=== PATIENT | male | born 1945 | race African-American/Black ===

== ENCOUNTER → 2020-07-28 09:12 | Outpatient (BNVA) | payer MEDICARE, SELFPAY | PROVIDERS: PCP Internal Medicine; Referring Provider Internal Medicine; Visit Provider Dietitian, Registered ==

== ENCOUNTER 2020-07-29 10:17 | Outpatient (REF) | payer MEDICARE, SELFPAY ==
[2020-07-29 15:10] LABS: Estimated Average Glucose 154 mg/dL
[2020-07-29 15:11] LABS: Alanine Aminotransferase 13 U/L (0-40); Albumin Level 4.6 g/dL (3.5-5.0); Alkaline Phosphatase 39 U/L (39-117); Anion Gap 15 (12-20); Aspartate Amino Transferase 19 U/L (5-37); Bilirubin Total 0.6 mg/dL (0.0-1.0); Blood Urea Nitrogen 14 mg/dL (9-16); Calcium 9.1 mg/dL (8.4-10.2); Carbon Dioxide 27 mmol/L (22-29); Chloride 104 mmol/L (96-108); Cholesterol 133 mg/dL; Estimated Glomerular Filt Rate > 60; Glucose Fasting 82 mg/dL (60-99); HDL Cholesterol 53 mg/dL; LDL Cholesterol Calculated 72 mg/dl; Potassium 4.1 mmol/L (3.3-5.1); Sodium 142 mmol/L (135-145); Triglycerides 44 mg/dL
[2020-07-29 15:28] LABS: Creatinine Urine 178.75 mg/dL; Microalbum/Creatinine Ratio Ur 6.7 ug/mg cr
[2020-07-30 05:43] LABS: LDL Cholesterol Direct 64 mg/dL (<100)
== END 2020-07-29 10:18 | disposition home or self-care (01) ==
LOC: HO.10HDL 10:17
PROVIDERS: Visit Provider Nurse Practitioner Gerontology
DX: E11.42 Type 2 diabetes mellitus with diabetic polyneuropathy (principal)
CPT/HCPCS: 36415; 80053; 80061; 82043; 83036; 83721

== ENCOUNTER → 2020-08-06 09:08 | Outpatient (BNVA) | payer MEDICARE, SELFPAY | PROVIDERS: PCP Internal Medicine; Visit Provider Nurse Practitioner Gerontology | DX: Z13.89 Encounter for screening for other disorder (principal) | CPT/HCPCS: 99212 ==

== ENCOUNTER 2020-10-30 15:26 | Outpatient (REF) | payer MEDICARE, SELFPAY ==
--- NOTE | 2020-10-31 13:43 | MHC.AU.ANO ---
Adult Audiological Evaluation Date of Visit: 10/30/20 Reason for Appointment: Patient reports long-standing history of hearing difficulty. He has had his hearing tested in the past at another clinic and was told he would benefit from hearing aids. It was observed during the appointment that the patient had difficulty hearing when speech was at average conversational volumes. Hearing Handicap Inventory: HHIE SCORE: 16 Based on HHIE score, patient has: Mild to moderate perceived hearing handicap Ear History: Ear Deformity: None Reported Recent Ear Drainage: None Reported Family History of Hearing Loss?: No Recent Ear Infections: None Reported Ear Infections in Childhood: None Reported History of Ear Wax Buildup: None Reported Previous Ear Surgery: None Reported Bothersome Tinnitus/Ringing/Noises in Ears: None Reported History of occupational noise exposure?: Yes History: No Medical History: Medical History: Type 2 Diabetes, Hypertension Otoscopy: Right Ear: Unremarkable Left Ear: Unremarkable Tympanometry: Tympanometry performed due to: To assess integrity of the middle ear system Right Ear: Normal Middle Ear System (Type A) Left Ear: Normal Middle Ear System (Type A) Hearing Evaluation: Transducer(s) Used: Circumaural Headphones Method: Conventional Audiometry Stimuli Used: Pure Tones Right Ear: Description of Hearing: Moderate to severe sensorineural hearing loss Left Ear: Description of Hearing: Moderate to severe sensorineural hearing loss Speech Recognition Threshold (SRT): Method Used: Recorded Lists Stimuli Used: Spondee Words Right Ear: 55 dBHL Left Ear: 50 dBHL Word Discrimination: Method: Recorded Lists Word Lists Used: NU-6 Right Ear: 72% at 80 dBHL Left Ear: 72% at 80 dBHL Most Comfortable Level (MCL): Right Ear: 80 dBHL Left Ear: 80 dBHL Interpretation of Results: Patient presents with moderate to severe sensorineural hearing loss bilaterally with fair word discrimination. This degree of hearing loss significantly impacts day-to-day communication. Amplification is highly recommended. Recommendations: Audiological re-evaluation in one year. Patient is interested in hearing aids, but is unable to pursue them at this time because of the cost. A few suggestions for obtaining hearing aids: -Advised patient to first contact his insurance to determine if there is any hearing aid benefit or discount. -Contact a local [email or web address] to ask about their hearing aid programs. -Consider a healthcare financing program, such as [employer]. -Research prices at various hearing aid providers. Diagnosis: Primary Diagnosis: H90.3 Bilateral Sensorineural Hearing Loss Services Performed: Comprehensive Audiological Evaluation (CPT 08950), Tympanometry (CPT 88063) Signature: Provider: Janet Falrey, CCC-A
== END 2020-10-30 15:27 | disposition home or self-care (01) ==
LOC: HO.SH 15:26
PROVIDERS: Visit Provider Internal Medicine
DX: H90.3 Sensorineural hearing loss, bilateral (principal)
CPT/HCPCS: 92557; 92567

== ENCOUNTER → 2020-12-09 14:01 | Outpatient (REF) | payer MEDICARE, SELFPAY ==
--- NOTE | 2020-12-09 14:13 | CA_ITS ---
Transthoracic Echocardiogram Patient (Last, First, Middle): Madi Tapia, Gender: Male Date of : 1945 Age: 75 Procedure Date: 12/09/2020 Procedure Type: Transthoracic Echocardiogram Location: OP Height: 172.72 cm Weight: 83.46 kg BSA: 1.97 m2 Heart Rate: bpm BP: 116 / 60 mmHg Grout Pump Operator: Referring MD: Raj Rick MD Symptoms: I34.0 NON RHEUMATIC MITRAL REGURG Study Quality: Good ECG Rhythm: Sinus Conclusions: - The left ventricular systolic function is normal. The visually estimated ejection fraction is between 65-70%. - There is moderate septal asymmetric hypertrophy. - There is mild calcification of the aortic valve. - There is mild mitral valve regurgitation. Findings Left Ventricle Normal left ventricular cavity size. There is mildly increased left ventricular wall thickness. The left ventricular systolic function is normal. The visually estimated ejection fraction is between 65-70%. There is no evidence of regional wall motion abnormalities. There is no dynamic left ventricular outflow tract obstruction. E/E prime ratio is <8, consistent with normal filling pressures. Evidence suggests grade I (mild) diastolic dysfunction. There is moderate septal asymmetric hypertrophy. Right Ventricle Normal right ventricular cavity size and systolic function. Atria The left atrium is normal in size. The right atrium is normal in size. Aortic Valve There is a normal trileaflet aortic valve. There is mild calcification of the aortic valve. There is no aortic valve stenosis. There is trace (trivial) aortic valve regurgitation. Mitral Valve The mitral valve appears normal. There is mild mitral valve regurgitation. There is no mitral valve stenosis. Pulmonic Valve The pulmonic valve was not well visualized. Tricuspid Valve Normal tricuspid valve structure. There is trace tricuspid valve regurgitation. The pulmonary artery systolic pressure is normal. Great Vessels The asc aorta is normal in size. Venous The inferior vena cava is normal in size and collapses greater than 50% with inspiration. Pericardium/Pleural There is no evidence of pericardial effusion. Prior Study Comparison Changes noted compared to prior study dated: 10/25/2018. Septal hypertrophy more prominent. Measurements 2D Linear Measurements IVSd: 1.44 0.6-0.9/0.6-1.0 cm LVIDd: 2.96 3.9-5.3/4.2-5.9 cm LVIDd Index: 1.50 2.4-3.2/2.2-3.1 cm/m2 LVIDs: 2.01 2.0-3.6 cm LVPWd: 1.42 0.7-1.1 cm Ao Root: 3.70 2.1-3.5 cm LA Diam: 3.80 2.7-3.8/3.0-4.0 cm LAIDs Index: 1.93 1.5-2.3 cm/m2 LV Mass: 178.05 67-162/88-224 g LV Mass Index: 90.38 43-95/49-115 g/m2 LVOT Diam: 2.30 3.0+(-)1.3 cm Mitral Valve MV Pk E: 0.42 MV PK A: 0.72 MV Decel Time: 243.00 E/A: 0.60 E'Lateral: 9.68 E'Medial: 5.98 E/E' Med: 7.00 E/E' Lat: 4.30 PHT: 71.00 MVA PHT: 3.10 Decel [place]: 1.69 Aortic Valve AoV Pk Xavi: 1.86 AoV Mn Xavi: 1.15 AoV VTI: 0.36 AoV Pk Grad: 14.00 Aov Mn Grad: 7.00 MIGUEL A Cont.VTI: 4.34 LVOT LVOT Pk Xavi: 1.73 LVOT Mn Xavi: 1.17 LVOT VTI: 0.38 LVOT Pk Grad: 12.00 LVOT Mn Grad: 7.00 LVOT Diam: 2.30 LVOT Area: 4.15 Diastolic Function MV Pk E: 0.42 MV Pk A: 0.72 E/A: 0.60 E'Medial: 5.98 E/E' Med: 7.00 E' Laterial: 9.68 E/E' Lat: 4.30 Tricuspid Valve TR Pk Xavi: 2.43 TR Pk Grad: 24.00 RA Press: 3.00 RVSP: 27.00 Great Vessels Aorta Ao Root-2D: 3.70 2.0-3.7 cm Ao Asc: 3.70 2.1-3.4 cm Pulmonary Valve PV Pk Xavi: 0.84 Peak PV Grad: 3.00 Updated in Other Vendor System with Status of Final Raj Rick MD electronically signed on 12/10/2020 10:27:01 AM with status of Final
--- NOTE | 2020-12-09 14:50 | ECG_ITS ---
Hook-up date: 2020-12-09 15:17:00 Duration: 39:37:00 Test Indications: PVC Medications: 970064 QRS complexes 2300 Ventricular ectopics which represent 2 % of total QRS comp. 41 Supraventricular ectopics which represent <1 % of total QRS comp. * Paced QRS complexs which represent % of total QRS comp. VENTRICULAR ECTOPY 2267 Isolated 12 Bigeminal Cycles 15 Couplets 0 Runs 0 Beats in Runs 0 Beats LONGEST at 0 BPM at :: -- 0 Beats FASTEST at 0 BPM at :: -- SUPRAVENTRICULAR ECTOPY 26 Isolated 4 Couplets 1 Runs 7 Beats in Runs 7 Beats LONGEST at 154 BPM at 09:49:06 2020-12-10 7 Beats FASTEST at 154 BPM at 09:49:06 2020-12-10 HEART RATES 60 MIN at 06:23:28 2020-12-10 79 AVG 120 MAX at 10:30:01 2020-12-10 LONGEST RR 1.0240 secs at 06:54:01 2020-12-10 S-T LEVELS Channel 1 - 128 mm at 15:17:00 2020-12-09 - 128 mm at 15:17:00 2020-12-09 Channel 2 - 128 mm at 15:17:00 2020-12-09 - 128 mm at 15:17:00 2020-12-09 Channel 3 - 128 mm at 03:43:61 -- - 128 mm at 03:43:61 Basic rhythm Normal sinus rhythm No long pause or profound bradycardia Frequent Premature ventricular complexes , 2% of total beats Rare Premature atrial complexes One 7 beat run of SVE c/w SVT at 154 bpm One patient reported event correlated with NSR Referred By: Raj Rick Overread By: СВЕТЛАНА GONZALEZ MD
== END ==
LOC: HO.CARD 14:01
PROVIDERS: PCP Internal Medicine; Visit Provider Internal Medicine
DX: I34.0 Nonrheumatic mitral (valve) insufficiency (principal); I49.3 Ventricular premature depolarization
CPT/HCPCS: 93225; 93226; 93306

== ENCOUNTER → 2020-12-17 07:26 | Outpatient (BNVA) | payer MEDICARE, SELFPAY | PROVIDERS: PCP Internal Medicine; Visit Provider Nurse Practitioner Gerontology | DX: E11.42 Type 2 diabetes mellitus with diabetic polyneuropathy (principal); E66.3 Overweight; E78.5 Hyperlipidemia, unspecified; I10 Essential (primary) hypertension | CPT/HCPCS: 82947; 99212 ==

== ENCOUNTER → 2020-12-30 13:59 | Outpatient (BNVA) | payer MEDICARE, SELFPAY | PROVIDERS: PCP Internal Medicine; Referring Provider Internal Medicine; Visit Provider Internal Medicine | DX: I49.3 Ventricular premature depolarization (principal); I42.2 Other hypertrophic cardiomyopathy; E11.8 Type 2 diabetes mellitus with unspecified complications | CPT/HCPCS: 93005; 99212 ==

== ENCOUNTER → 2021-01-29 09:20 | Outpatient (BNVA) | payer MEDICARE, SELFPAY | PROVIDERS: PCP Internal Medicine; Visit Provider Dietitian, Registered | DX: E11.42 Type 2 diabetes mellitus with diabetic polyneuropathy (principal) | CPT/HCPCS: 97803 ==

== ENCOUNTER → 2021-04-22 07:32 | Outpatient (BNVA) | payer MEDICARE, SELFPAY | PROVIDERS: PCP Internal Medicine; Visit Provider Nurse Practitioner Gerontology | DX: E11.42 Type 2 diabetes mellitus with diabetic polyneuropathy (principal); E66.3 Overweight; E78.5 Hyperlipidemia, unspecified; I10 Essential (primary) hypertension | CPT/HCPCS: 82947; 99212 ==

== ENCOUNTER → 2021-04-24 08:04 | Outpatient (BNVA) | payer MEDICARE, SELFPAY | PROVIDERS: PCP Internal Medicine; Visit Provider Registered Nurse Diabetes Educator ==

== ENCOUNTER → 2021-05-04 08:00 | Outpatient (BNVA) | payer MEDICARE, SELFPAY | PROVIDERS: PCP Internal Medicine; Visit Provider Nurse Practitioner Gerontology | DX: E11.42 Type 2 diabetes mellitus with diabetic polyneuropathy (principal); E66.3 Overweight; I10 Essential (primary) hypertension; E78.5 Hyperlipidemia, unspecified; Z68.26 Body mass index [BMI] 26.0-26.9, adult | CPT/HCPCS: 82947; 99212 ==

== ENCOUNTER → 2021-05-12 09:20 | Outpatient (BNVA) | payer MEDICARE, SELFPAY | PROVIDERS: PCP Internal Medicine; Visit Provider Registered Nurse Diabetes Educator | DX: E11.42 Type 2 diabetes mellitus with diabetic polyneuropathy (principal) | CPT/HCPCS: 99211 ==

== ENCOUNTER → 2021-06-09 09:43 | Outpatient (BNVA) | payer MEDICARE, SELFPAY | PROVIDERS: Visit Provider Registered Nurse Diabetes Educator | DX: E11.42 Type 2 diabetes mellitus with diabetic polyneuropathy (principal) | CPT/HCPCS: 99211 ==

== ENCOUNTER → 2021-07-30 08:55 | Outpatient (BNVA) | payer MEDICARE, SELFPAY | PROVIDERS: Visit Provider Dietitian, Registered | DX: E11.42 Type 2 diabetes mellitus with diabetic polyneuropathy (principal); Z71.3 Dietary counseling and surveillance | CPT/HCPCS: 97803 ==

== ENCOUNTER → 2021-08-03 14:22 | Outpatient (BNVA) | payer MEDICARE, SELFPAY | PROVIDERS: Visit Provider Nurse Practitioner Gerontology | DX: Z13.89 Encounter for screening for other disorder (principal) | CPT/HCPCS: Q3014 ==

== ENCOUNTER 2021-08-04 08:23 | Outpatient (REF) | payer MEDICARE, SELFPAY ==
[2021-08-04 10:24] LABS: Estimated Average Glucose 180 mg/dL; Hemoglobin A1c % 7.9 %
[2021-08-04 10:26] LABS: Alanine Aminotransferase 22 U/L (0-40); Albumin Level 4.2 g/dL (3.5-5.0); Alkaline Phosphatase 52 U/L (39-117); Anion Gap 11 (12-20); Aspartate Amino Transferase 31 U/L (5-37); Bilirubin Total 0.8 mg/dL (0.0-1.0); Blood Urea Nitrogen 11 mg/dL (9-16); Calcium 9.8 mg/dL (8.4-10.2); Carbon Dioxide 31 mmol/L (22-29); Chloride 103 mmol/L (96-108); Cholesterol 125 mg/dL; Estimated Glomerular Filt Rate > 60; Glucose Fasting 94 mg/dL (60-99); HDL Cholesterol 43 mg/dL; LDL Cholesterol Calculated 68 mg/dl; Potassium 4.1 mmol/L (3.3-5.1); Sodium 141 mmol/L (135-145); Total Protein 6.6 g/dL (6.5-8.0); Triglycerides 71 mg/dL
[2021-08-04 10:46] LABS: Microalbum/Creatinine Ratio Ur 6.1 ug/mg cr
[2021-08-04 10:48] LABS: Free T4 (Free Thyroxine) 0.87 ng/dL (0.71-1.85); Thyroid Stimulating Hormone 1.15 uIU/mL (0.32-4.0)
[2021-08-05 06:05] LABS: LDL Cholesterol Direct 63 mg/dL (<100)
== END 2021-08-04 08:24 | disposition home or self-care (01) ==
LOC: HO.10HDL 08:23
PROVIDERS: Visit Provider Nurse Practitioner Gerontology
DX: E11.42 Type 2 diabetes mellitus with diabetic polyneuropathy (principal)
CPT/HCPCS: 36415; 80053; 80061; 82043; 83036; 83721; 84439; 84443

== ENCOUNTER → 2021-09-08 09:10 | Outpatient (BNVA) | payer MEDICARE, SELFPAY | PROVIDERS: Visit Provider Registered Nurse Diabetes Educator | DX: E11.8 Type 2 diabetes mellitus with unspecified complications (principal) | CPT/HCPCS: 99211 ==

== ENCOUNTER → 2021-10-28 08:55 | Outpatient (BNVA) | payer OTHER, SELFPAY | PROVIDERS: Visit Provider Dietitian, Registered | DX: E11.42 Type 2 diabetes mellitus with diabetic polyneuropathy (principal) | CPT/HCPCS: 97803 ==

== ENCOUNTER → 2021-12-08 08:12 | Outpatient (REF) | payer MEDICARE, SELFPAY ==
--- NOTE | 2021-12-08 08:16 | CA_ITS ---
Transthoracic Echocardiogram Patient (Last, First, Middle): Madi Tapia, Gender: Male Date of : 1945 Age: 76 Procedure Date: 12/08/2021 Procedure Type: Transthoracic Echocardiogram Location: OP Height: 172.72 cm Weight: 78.47 kg BSA: 1.92 m2 Heart Rate: 73 bpm BP: 150 / 70 mmHg Electrical Equipment Technician: SB Referring MD: Raj Rick MD Symptoms: I42.2 - Other hypertrophic cardiomyopathy Study Quality: Adequate ECG Rhythm: Sinus Conclusions: - The left ventricular systolic function is normal. The calculated ejection fraction is 67% by biplane method. - There is severe septal and severe basal asymmetric hypertrophy. - No obvious valvular pathology seen on this study. Findings Left Ventricle Normal left ventricular cavity size. The left ventricular systolic function is normal. The calculated ejection fraction is 67% by biplane method. There is no evidence of regional wall motion abnormalities. There is severe septal and severe basal asymmetric hypertrophy. Right Ventricle Normal right ventricular cavity size. There is normal right ventricular systolic function. Atria Both atria are normal in size. Aortic Valve There is mild calcification of the aortic valve. There is no aortic valve stenosis. There is trace (trivial) aortic valve regurgitation. Mitral Valve The mitral valve appears normal. There is trace mitral valve regurgitation. There is no mitral valve stenosis. Pulmonic Valve The pulmonic valve is likely normal. Tricuspid Valve Normal tricuspid valve structure. There is trace tricuspid valve regurgitation. There is no evidence of pulmonary hypertension. Great Vessels The asc aorta is normal in size. Venous The inferior vena cava is normal in size and collapses greater than 50% with inspiration. Pericardium/Pleural There is no evidence of pericardial effusion. Prior Study Comparison Changes noted compared to prior study dated: 12/09/2020. Septal hypertrophy more prominent. Recommendations, Care & Conclusions No obvious valvular pathology seen on this study. Measurements 2D Linear Measurements IVSd: 1.03 0.6-0.9/0.6-1.0 cm LVIDd: 3.99 3.9-5.3/4.2-5.9 cm LVIDd Index: 2.08 2.4-3.2/2.2-3.1 cm/m2 LVIDs: 2.91 2.0-3.6 cm LVPWd: 0.96 0.7-1.1 cm LA Diam: 3.60 2.7-3.8/3.0-4.0 cm LAIDs Index: 1.88 1.5-2.3 cm/m2 LV Mass: 156.00 67-162/88-224 g LV Mass Index: 81.25 43-95/49-115 g/m2 LVOT Diam: 2.50 3.0+(-)1.3 cm 2D Systolic Function EF 4C: 66.80 >55% EF 2C: 62.70 >55% EF BiP: 66.50 >55% Mitral Valve MV Pk E: 0.38 MV PK A: 0.57 MV Decel Time: 274.00 E/A: 0.70 E'Lateral: 7.29 E'Medial: 4.79 E/E' Med: 7.90 E/E' Lat: 5.20 PHT: 80.00 MVA PHT: 2.75 Decel [place]: 1.37 Aortic Valve AoV Pk Xavi: 1.39 AoV Mn Xavi: 1.00 AoV VTI: 0.29 AoV Pk Grad: 8.00 Aov Mn Grad: 5.00 MIGUEL A Cont.VTI: 4.93 AI Pk Xavi: 4.76 AI [place]: 3.04 LVOT LVOT Pk Xavi: 1.44 LVOT Mn Xavi: 0.98 LVOT VTI: 0.29 LVOT Pk Grad: 8.00 LVOT Mn Grad: 5.00 LVOT Diam: 2.50 LVOT Area: 4.91 Diastolic Function MV Pk E: 0.38 MV Pk A: 0.57 E/A: 0.70 E'Medial: 4.79 E/E' Med: 7.90 E' Laterial: 7.29 E/E' Lat: 5.20 Tricuspid Valve TR Pk Xavi: 2.36 TR Pk Grad: 22.00 RA Press: 3.00 Great Vessels Aorta Sinus of Valsalva: 3.50 2.0-3.5 cm Ao Asc: 3.90 2.1-3.4 cm Pulmonary Valve PV Pk Xavi: 0.74 Peak PV Grad: 2.00 Updated in Other Vendor System with Status of Final Raj Rick MD electronically signed on 12/08/2021 10:15:09 AM with status of Final
--- NOTE | 2021-12-08 08:16 | HM_ITS ---
Conclusion: 1. Patient was monitored for total period of 2 days and 22 hours 2. Baseline was normal sinus rhythm with average heart of 73 beats per minute 3. Total of 9009 a 58 PVCs accounting for 3.3% of total beats account for frequent PVCs 4. No patient reported events MTDD
== END ==
LOC: HO.CARD 08:12
PROVIDERS: Visit Provider Internal Medicine
DX: I42.2 Other hypertrophic cardiomyopathy (principal); I49.3 Ventricular premature depolarization
CPT/HCPCS: 93242; 93306

== ENCOUNTER → 2021-12-15 08:26 | Outpatient (BNVA) | payer MEDICARE, SELFPAY | PROVIDERS: PCP Internal Medicine; Visit Provider Registered Nurse Diabetes Educator | DX: E11.42 Type 2 diabetes mellitus with diabetic polyneuropathy (principal) | CPT/HCPCS: 99211 ==

== ENCOUNTER → 2021-12-31 12:29 | Outpatient (BNVA) | payer MEDICARE, SELFPAY | PROVIDERS: PCP Internal Medicine; Visit Provider Internal Medicine | DX: I49.3 Ventricular premature depolarization (principal); I42.2 Other hypertrophic cardiomyopathy; E11.8 Type 2 diabetes mellitus with unspecified complications | CPT/HCPCS: 93005; 99212 ==

== ENCOUNTER → 2022-03-03 09:47 | Outpatient (BNVA) | payer MEDICARE, SELFPAY | PROVIDERS: PCP Internal Medicine; Visit Provider Dietitian, Registered | DX: E11.42 Type 2 diabetes mellitus with diabetic polyneuropathy (principal); Z71.3 Dietary counseling and surveillance | CPT/HCPCS: 97803 ==

== ENCOUNTER → 2022-03-17 09:01 | Outpatient (BNVA) | payer MEDICARE, SELFPAY | PROVIDERS: PCP Internal Medicine; Visit Provider Registered Nurse Diabetes Educator | DX: E11.8 Type 2 diabetes mellitus with unspecified complications (principal) | CPT/HCPCS: 99211 ==

== ENCOUNTER → 2022-06-17 09:45 | Outpatient (BNVA) | payer MEDICARE, SELFPAY | PROVIDERS: PCP Internal Medicine; Visit Provider Registered Nurse Diabetes Educator | DX: E11.8 Type 2 diabetes mellitus with unspecified complications (principal); Z79.84 Long term (current) use of oral hypoglycemic drugs | CPT/HCPCS: 99211 ==

== ENCOUNTER → 2022-10-14 | Outpatient (BNVA) | payer MEDICARE, SELFPAY | PROVIDERS: PCP Internal Medicine; Visit Provider Registered Nurse Diabetes Educator | DX: E11.65 Type 2 diabetes mellitus with hyperglycemia (principal) | CPT/HCPCS: 99211 ==

== ENCOUNTER → 2022-12-30 10:36 | Outpatient (BNVA) | payer MEDICARE, SELFPAY | PROVIDERS: PCP Internal Medicine; Visit Provider Internal Medicine | DX: I42.2 Other hypertrophic cardiomyopathy (principal); I49.3 Ventricular premature depolarization; I25.10 Atherosclerotic heart disease of native coronary artery without angina pectoris; I10 Essential (primary) hypertension | CPT/HCPCS: 93005; 99212 ==

== ENCOUNTER 2022-12-30 10:38 | Outpatient (AMB) | payer MEDICARE, SELFPAY ==
--- NOTE | 2022-12-30 10:38 | MHC.OFFVIS ---
Intake Vital Signs 12/30/22 10:39 Height 5 ft 8 in Weight 158 lb 4.67 oz BMI 24.1 BP 100/62 Blood Pressure Location Lt brachial Position Sitting Pulse 52 Intake Visit Reasons: 1 yr f/up Intake Note: 1 year follow up w/ EKG Media Relations Specialist Required: No Allergies HELENA Inhibitors [HELENA INHIBITORS] Allergy (Unknown, Verified 12/31/21 13:07) ANAPHYLAXIS ARB-Angiotensin Receptor Antagonist [ARB-ANGIOTENSIN RECEPTOR ANTAGONIST] Allergy (Unknown, Verified 12/31/21 13:07) ANAPHYLAXIS Medication List - Last Reconciled 12/30/22 by Raj Rick MD aspirin 81 mg PO DAILY atorvastatin 80 mg PO DAILY azathioprine 50 mg PO DAILY blood sugar diagnostic (JoinTV Ultra Test strips) 1 strip miscellaneous TID 30 days famotidine 20 mg PO BID fluticasone propionate 50 mcg/actuation 1 spray intranasal DAILY hydrochlorothiazide 12.5 mg PO DAILY insulin glargine (Lantus U-100 Insulin) 9 units subcut insulin syringe-needle U-100 (BD Veo Insulin Syringe Ultra-Fine) As directed lisinopril 5 mg PO DAILY metformin 850 mg PO BID metoprolol succinate ER 25 mg PO DAILY repaglinide 1 pill small meal, 2 pill med meals, 3 pill large meals PO 3 times a day; sennosides 17.2 mg PO DAILY PRN tamsulosin 0.8 mg PO DAILY HPI HPI Comments History of Present Illness Details Madi returns for follow-up. In the past, he was seen regarding PVCs, mitral regurgitation and some septal hypertrophy. He was actually doing fine the last time he was seen about a year ago. In October 2022, it seems that he was admitted to [facility] with chest pain and then diagnosed with NSTEMI. Then transferred to [facility]. In that setting, he underwent cardiac catheterization but nothing obstructive. Echocardiogram at shown LV dysfunction. It was felt he might have stress-induced cardiomyopathy. Since that time, he saw the [facility] nurse practitioner once in follow-up. Overall, he states he is doing good. No chest pain or in fact any symptoms at all. [facility] Medical History (Updated 12/30/22 @ 11:45 by Raj Rick MD) Atherosclerotic cardiovascular disease BPH (benign prostatic hyperplasia) Diabetes type 2, uncontrolled Dyslipidemia Essential hypertension GERD (gastroesophageal reflux disease) Hyperlipidemia Overweight (BMI 25.0-29.9) PVC (premature ventricular contraction) Ulcerative colitis Vitamin deficiency Surgical History History of esophagogastroduodenoscopy (EGD) History of prostate surgery Hx of cataract surgery Hx of colonoscopy Family History Father Diabetes CVD (cardiovascular disease) Mother CVD (cardiovascular disease) Social History Household Members: Spouse and Family Alcohol intake: never Patient Tobacco Use Status: Never used Tobacco Review of Systems Const Denies weakness ENT Denies dizziness Card Denies chest pain, Denies chest pain with activity, Denies syncope, Denies rapid heart rate, Denies pedal edema, Denies edema, Denies leg edema, Denies lightheadedness, Denies palpitations, Denies dyspnea, Denies dyspnea on exertion and Denies orthopnea Resp Denies cough, Denies dyspnea and Denies dyspnea on exertion GI Denies hematochezia and Denies change in stool character Musc Denies abnormal gait, Denies muscle cramps, Denies muscle weakness, Denies numbness, Denies radiating pain into limb and Denies tingling Neuro Denies abnormal gait, Denies dizziness, Denies syncope, Denies numbness, Denies tingling and Denies weakness Endo Denies palpitations Physical Exam Vital Signs: Last Vital Signs Pulse 52 12/30/22 10:39 BP 100/62 12/30/22 10:39 BMI result Body Mass Index 24.1 Const General: comfortable and no acute distress Orientation/consciousness: patient oriented x3 HEENT Other: Unremarkable Head: Yes normal to inspection Neck Neck: Yes normal visual inspection Chest Chest palpation & inspection: normal inspection of the chest Resp Auscultation: clear to auscultation bilaterally Cardio Palpation: normal PMI Heart sounds: S1 normal heart sound present, S2 normal heart sound present, no gallops, no murmurs and no rubs GI Palpation (GI): Soft to palpation Back/Spine/Pelvis Other: unremarkable Skin General skin exam: no rashes or lesions noted Neuro General: patient oriented x3 Extrem General: Yes normal to inspection Psych Mental Status: mental status grossly normal Office Procedures EKG Details: EKG with sinus bradycardia 52/Min; right bundle-branch block; leftward axis; [place] prolongation to 214 milliseconds. These seem new compared to the last EKG we have in our system. 10210-[id number], Complete Assessment & Plan Assessment & Plan (1) Cardiomyopathy: Code(s): I42.9 - Cardiomyopathy, unspecified Plan: In the last echocardiogram from [facility] in October, LVEF 20-25%. Westhoff akinetic. Otherwise, unremarkable. Possible stress-induced cardiomyopathy but not very clear. Will need to repeat the study. He is on beta-blockers and lisinopril. Clinically, no heart failure symptoms or signs. (2) Atherosclerotic cardiovascular disease: Code(s): I25.10 - Atherosclerotic heart disease of [place] coronary artery without angina pectoris Plan: Cardiac catheterization from October 2022 with moderate diffuse disease in the RCA. Otherwise only mild CAD only. He can continue aspirin/beta-blockers and statins. Last LDL from [facility] 41 mg/dL. Triglycerides 62 mg/dL. There is mention of starting Plavix in [facility] documentation but not in his list. Need to check with pharmacy. (3) Asymmetric septal hypertrophy: Code(s): I42.2 - Other hypertrophic cardiomyopathy Plan: In prior echocardiograms, he has had severe basal septal hypertrophy. We will repeat study to re-evaluate as above. (4) PVC (premature ventricular contraction): Code(s): I49.3 - Ventricular premature depolarization Plan: No specific clinical concerns at this time. Plan Total time spent including review of all the [facility] documentation, counseling, documentation, coordination of care-40 minutes Orders: Orders CA echo transthoracic complete Today I42.2 - Other hypertrophic cardiomyopathy, I51.81 - Takotsubo syndrome Coding Level of Care Code Est Pt Level 4 (89283) Diagnoses Cardiomyopathy I42.9 Atherosclerotic cardiovascular disease I25.10 Asymmetric septal hypertrophy I42.2 PVC (premature ventricular contraction) I49.3 CPT Codes EKG - CPT: 68929-[id number], Complete ([id number])
[2022-12-30 10:39] VITALS: BP 100/62; PULSE 52; BMI 24.1
== END 2022-12-30 11:01 | disposition home or self-care (01) ==
PROVIDERS: PCP Internal Medicine; Visit Provider Internal Medicine
DX: I42.9 Cardiomyopathy, unspecified (principal); I25.10 Atherosclerotic heart disease of native coronary artery without angina pectoris; I42.2 Other hypertrophic cardiomyopathy; I49.3 Ventricular premature depolarization
CPT/HCPCS: 93010; 99214

== ENCOUNTER → 2022-12-31 10:14 | Outpatient (BNVA) | payer MEDICARE, SELFPAY | PROVIDERS: PCP Internal Medicine; Visit Provider Internal Medicine | DX: Z51.81 Encounter for therapeutic drug level monitoring (principal) | CPT/HCPCS: 99211 ==

== ENCOUNTER 2023-01-18 09:04 | Outpatient (AMB) | payer MEDICARE, SELFPAY ==
--- NOTE | 2023-01-18 09:13 | MHC.AMDMED ---
Intake Vital Signs 01/18/23 09:13 Weight 157 lb 5 oz Intake Visit Reasons: f/u Type 2 DM Principal Technical Specialist Required: No Accompanied by: Self / Same As Patient Allergies HELENA Inhibitors [HELENA INHIBITORS] Allergy (Unknown, Verified 12/31/21 13:07) ANAPHYLAXIS ARB-Angiotensin Receptor Antagonist [ARB-ANGIOTENSIN RECEPTOR ANTAGONIST] Allergy (Unknown, Verified 12/31/21 13:07) ANAPHYLAXIS HPI Comprehensive Diabetes Asmnt Most Recent Diabetes Results: No Data to Display [facility] Medical History (Updated 12/30/22 @ 11:45 by Raj Rick MD) Atherosclerotic cardiovascular disease BPH (benign prostatic hyperplasia) Diabetes type 2, uncontrolled Dyslipidemia Essential hypertension GERD (gastroesophageal reflux disease) Hyperlipidemia Overweight (BMI 25.0-29.9) PVC (premature ventricular contraction) Ulcerative colitis Vitamin deficiency Surgical History History of esophagogastroduodenoscopy (EGD) History of prostate surgery Hx of cataract surgery Hx of colonoscopy Family History Father Diabetes CVD (cardiovascular disease) Mother CVD (cardiovascular disease) Social History Household Members: Spouse and Family Alcohol intake: never Patient Tobacco Use Status: Never used Tobacco Assessment & Plan Assessment & Plan (1) Type 2 diabetes mellitus with unspecified complications: Code(s): E11.8 - Type 2 diabetes mellitus with unspecified complications Plan: Patient at visit for follow-up blood glucose check, and diabetes education Unable to review patient's glucose levels because he did not bring meter to today's visit. Patient reports he is currently participating in physical therapy, after being hospitalized for chest pain Patient does not recall when last A1c was drawn Reviewed patient's current blood sugars Patient reports blood sugars below: Date?? Breakfast/Fasting? ? ? Pre-Lunch? ? ? Pre-Supper? ? ? Bedtime? ? ? Notes ? Plan/Goal:? Patient will follow-up 1 month prosthodontist/educator patient will bring meter to every visit at endocrinology clinic Patient Instructions: Bring meter to every visit and Endocrinology Clinic Follow-up with prosthodontist/educator in 1 month Coding Level of Care Code Est Pt Level 1 (60504) Diagnoses Type 2 diabetes mellitus with unspecified complications E11.8
== END 2023-01-18 09:44 | disposition home or self-care (01) ==
PROVIDERS: PCP Internal Medicine; Visit Provider Registered Nurse Diabetes Educator
DX: E11.8 Type 2 diabetes mellitus with unspecified complications (principal)

== ENCOUNTER → 2023-01-18 09:04 | Outpatient (BNVA) | payer MEDICARE, SELFPAY | PROVIDERS: Visit Provider Registered Nurse Diabetes Educator | DX: E11.8 Type 2 diabetes mellitus with unspecified complications (principal) | CPT/HCPCS: 99211 ==

== ENCOUNTER → 2023-02-15 09:47 | Outpatient (REF) | payer MEDICARE, SELFPAY ==
--- NOTE | 2023-02-15 09:50 | CA_ITS ---
Transthoracic Echocardiogram Amended Patient (Last, First, Middle): Madi Tapia, Gender: Male Date of : 1945 Age: 77 Procedure Date: 02/15/2023 Procedure Type: Transthoracic Echocardiogram Location: OP Height: 172.72 cm Weight: 68.04 kg BSA: 1.81 m2 Heart Rate: 52 bpm BP: 118 / 54 mmHg Wild Life Photographer: SB Referring MD: Raj Rick MD Symptoms: I42.2 - Other hypertrophic cardiomyopathy Study Quality: Adequate ECG Rhythm: Bradycardia Conclusions: - The left ventricular systolic function is normal. The calculated ejection fraction is 59% by biplane method. - There is severe septal and severe basal asymmetric hypertrophy. - No obvious valvular pathology seen on this study. Findings Left Ventricle Normal left ventricular cavity size. The left ventricular systolic function is normal. The calculated ejection fraction is 59% by biplane method. Evidence suggests grade I (mild) diastolic dysfunction. There is severe septal and severe basal asymmetric hypertrophy. Right Ventricle Normal right ventricular cavity size. There is mildly decreased right ventricular systolic function. Atria Both atria are normal in size. Aortic Valve There is mild calcification of the aortic valve. There is no aortic valve stenosis. There is mild aortic valve regurgitation. Mitral Valve There is mild anterior mitral leaflet thickening. There is no mitral valve regurgitation. There is no mitral valve stenosis. Pulmonic Valve The pulmonic valve is likely normal. Tricuspid Valve Normal tricuspid valve structure. There is trace tricuspid valve regurgitation. There is no evidence of pulmonary hypertension. Great Vessels The aorta was not well visualized. The sinuses of valsalva is normal in size. Venous The inferior vena cava is normal in size and collapses less than 50% with inspiration. Pericardium/Pleural There is no evidence of pericardial effusion. Prior Study Comparison No significant change compared to prior study dated: 12/08/2021. Reporting delayed due to technical reasons. Recommendations, Care & Conclusions No obvious valvular pathology seen on this study. Measurements 2D Linear Measurements IVSd: 0.78 0.6-0.9/0.6-1.0 cm LVIDd: 4.57 3.9-5.3/4.2-5.9 cm LVIDd Index: 2.52 2.4-3.2/2.2-3.1 cm/m2 LVIDs: 3.17 2.0-3.6 cm LVPWd: 0.87 0.7-1.1 cm LA Diam: 3.80 2.7-3.8/3.0-4.0 cm LAIDs Index: 2.10 1.5-2.3 cm/m2 LV Mass: 150.04 67-162/88-224 g LV Mass Index: 82.90 43-95/49-115 g/m2 LVOT Diam: 2.40 3.0+(-)1.3 cm 2D Volumes LA Vol: 29.90 2D Systolic Function EF 4C: 59.60 >55% EF 2C: 56.00 >55% EF BiP: 58.60 >55% Mitral Valve MV Pk E: 0.42 MV PK A: 0.57 MV Decel Time: 241.00 E/A: 0.70 E'Lateral: 6.31 E'Medial: 6.09 E/E' Med: 6.90 E/E' Lat: 6.60 PHT: 71.00 MVA PHT: 3.10 Decel [place]: 1.62 Aortic Valve AoV Pk Xavi: 0.90 AoV Pk Grad: 3.00 MIGUEL A: 3.30 AI Pk Xavi: 4.00 AI [place]: 1.97 LVOT LVOT Pk Xavi: 0.71 LVOT Mn Xavi: 0.51 LVOT VTI: 0.18 LVOT Pk Grad: 2.00 LVOT Mn Grad: 1.00 LVOT Diam: 2.40 LVOT Area: 4.52 Diastolic Function MV Pk E: 0.42 MV Pk A: 0.57 E/A: 0.70 E'Medial: 6.09 E/E' Med: 6.90 E' Laterial: 6.31 E/E' Lat: 6.60 Right Ventricle TAPSE (mm): 16.50 TVS' Xavi: 10.30 Tricuspid Valve TR Pk Xavi: 2.04 TR Pk Grad: 17.00 RA Press: 8.00 RVSP: 22.00 Great Vessels Aorta Sinus of Valsalva: 3.50 2.0-3.5 cm Pulmonary Veins Pulm Vein S/D 0.70 Pulmonary Valve PV Pk Xavi: 0.59 Peak PV Grad: 1.00 Updated in Other Vendor System with Status of Final Raj Rick MD electronically signed on 02/19/2023 11:29:39 AM with status of Final
== END ==
LOC: HO.CARD 09:47
PROVIDERS: PCP Internal Medicine; Visit Provider Internal Medicine
DX: I42.2 Other hypertrophic cardiomyopathy (principal); I51.81 Takotsubo syndrome
CPT/HCPCS: 93306

== ENCOUNTER → 2023-02-15 09:50 | Outpatient (BNV) | payer MEDICARE, SELFPAY | PROVIDERS: PCP Internal Medicine; Visit Provider Internal Medicine | DX: I42.2 Other hypertrophic cardiomyopathy (principal) | CPT/HCPCS: 93306 ==

== ENCOUNTER 2023-02-18 09:16 | Outpatient (AMB) | payer MEDICARE, SELFPAY ==
--- NOTE | 2023-02-18 09:36 | A.OFFVIS_ITS ---
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: No Accompanied by: Self / Same As Patient Allergies HELENA Inhibitors [HELENA INHIBITORS] Allergy (Unknown, Verified 12/31/21 13:07) ANAPHYLAXIS ARB-Angiotensin Receptor Antagonist [ARB-ANGIOTENSIN RECEPTOR ANTAGONIST] Allergy (Unknown, Verified 12/31/21 13:07) ANAPHYLAXIS HPI Comprehensive Diabetes Asmnt Most Recent Diabetes Results: No Data to Display [facility] Medical History (Updated 12/30/22 @ 11:45 by aRj Rick MD) Atherosclerotic cardiovascular disease PVC (premature ventricular contraction) Hyperlipidemia BPH (benign prostatic hyperplasia) GERD (gastroesophageal reflux disease) Ulcerative colitis Vitamin deficiency Dyslipidemia Essential hypertension Overweight (BMI 25.0-29.9) Diabetes type 2, uncontrolled Surgical History Hx of cataract surgery History of esophagogastroduodenoscopy (EGD) History of prostate surgery Hx of colonoscopy Family History Father Diabetes CVD (cardiovascular disease) Mother CVD (cardiovascular disease) Social History Household Members: Spouse and Family Alcohol intake: never Patient Tobacco Use Status: Never used Tobacco Assessment & Plan Assessment & Plan (1) Type 2 diabetes mellitus with unspecified complications: Code(s): E11.8 - Type 2 diabetes mellitus with unspecified complications Plan: Learning objectives: The patient was provided with verbal and written education on the following topics as outlined below. Assess patient education level/literacy/barriers Patient questions/concerns, patient is currently not taking Lantus or repaglinide Reports he is taking metformin 850 mg b.i.d. During visit called his PCP at [facility] Last A1c done on 02/09/2023 of 7% The patient met all learning objectives and was able to verbalize understanding and provide teach back of education topics discussed . The patient was provided with the opportunity to ask questions and all questions were answered. Topics covered in today?s session included: Medications (If applicable) ? Name of medication? Dosing/administration instructions? Mechanism of action? Potential side effects? Potential adverse reaction and appropriate treatment? Review onset, peak, duration Assess for concerns re: insurance coverage, cost, barriers to compliance Hypoglycemia and Hyperglycemia ? Signs and symptoms? Causes? Treatment? Preventing hypoglycemia? When to seek medical attention ?Blood glucose targets and how you feel when your blood glucose is in and out of your target ranges. ?Monitoring and knowing your A1C. ?What can make blood glucose go up and down and preventing high and low blood glucose. ?Review of blood sugar targets in expected goal range and outside of expected goal range. ?Problem solving and preventing hyper/hypoglycemia. ?Sick day management of diabetes. ?Using blood sugar results in decision making process in managing diabetes. ?Patient was receptive to information provided and participated in the discussion. Asked?appropriate questions and demonstrated good understanding of the topics discussed.? ? Smart Goal Assessment:? Patient did not bring meter to today's appointment Pt met goal less than 25% New Smart Goal: Bring meter to every appointment with Diabetes Education Patient Response to instructions: Comprehension of Instructions: Poor Readiness to make changes:? Contemplate How confident they feel about making changes: Poor Patient Instructions: Patient will follow-up with Diabetes Education nurse in 3 months Coding Level of Care Code Est Pt Level 1 (24860) Diagnoses Type 2 diabetes mellitus with unspecified complications E11.8
== END 2023-02-18 10:07 | disposition home or self-care (01) ==
LOC: HO.ENCR 09:16
PROVIDERS: PCP Internal Medicine; Visit Provider Registered Nurse Diabetes Educator
DX: E11.8 Type 2 diabetes mellitus with unspecified complications (principal)

== ENCOUNTER → 2023-02-18 09:16 | Outpatient (BNVA) | payer MEDICARE, SELFPAY | PROVIDERS: PCP Internal Medicine; Visit Provider Registered Nurse Diabetes Educator | DX: E11.8 Type 2 diabetes mellitus with unspecified complications (principal) | CPT/HCPCS: 99211 ==

== ENCOUNTER 2023-04-07 10:04 | Outpatient (AMB) | payer MEDICARE, SELFPAY ==
[2023-04-07 10:05] VITALS: BP 160/68; PULSE 52; BMI 23.5
--- NOTE | 2023-04-07 10:05 | A.OFFVIS_ITS ---
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 Accompanied by: Self / Same As Patient Allergies HELENA Inhibitors [HELENA INHIBITORS] Allergy (Unknown, Verified 04/07/23 10:09) ANAPHYLAXIS ARB-Angiotensin Receptor Antagonist [ARB-ANGIOTENSIN RECEPTOR ANTAGONIST] Allergy (Unknown, Verified 04/07/23 10:09) ANAPHYLAXIS Medication List - Last Reconciled 04/07/23 by Raj Rikc MD aspirin 81 mg PO DAILY atorvastatin 80 mg PO DAILY azathioprine 50 mg PO DAILY blood sugar diagnostic ([employer] Ultra Test strips) 1 strip miscellaneous TID 30 days clopidogrel (Plavix) 75 mg PO DAILY famotidine 20 mg PO BID fluticasone propionate 50 mcg/actuation 1 spray intranasal DAILY hydrochlorothiazide 12.5 mg PO DAILY insulin glargine (Lantus U-100 Insulin) 9 units subcut insulin syringe-needle U-100 (BD Veo Insulin Syringe Ultra-Fine) As directed lisinopril 5 mg PO DAILY metformin 850 mg PO BID metoprolol succinate ER 25 mg PO DAILY repaglinide 1 pill small meal, 2 pill med meals, 3 pill large meals PO 3 times a day; sennosides 17.2 mg PO DAILY PRN tamsulosin 0.8 mg PO DAILY HPI HPI Comments History of Present Illness Details Madi returns for follow-up. In the past, he was seen regarding PVCs, mitral regurgitation and some septal hypertrophy. He was actually doing okay. In October 2022, it seems that he was admitted to [facility] with chest p ain and then diagnosed with NSTEMI. Then transferred to [facility]. In that setting, he underwent cardiac catheterization but nothing obstructive. Echocardiogram had shown LV dysfunction. It was felt he might have stress- induced cardiomyopathy. Overall, doing generally okay. No specific cardiac symptoms. He seems very forgetful and does not know any of his medications. Looks very frail. [facility] Medical History (Updated 12/30/22 @ 11:45 by Raj Rick MD) Atherosclerotic cardiovascular disease PVC (premature ventricular contraction) Hyperlipidemia BPH (benign prostatic hyperplasia) GERD (gastroesophageal reflux disease) Ulcerative colitis Vitamin deficiency Dyslipidemia Essential hypertension Overweight (BMI 25.0-29.9) Diabetes type 2, uncontrolled Surgical History Hx of cataract surgery History of esophagogastroduodenoscopy (EGD) History of prostate surgery Hx of colonoscopy Family History Father Diabetes CVD (cardiovascular disease) Mother CVD (cardiovascular disease) Social History Household Members: Spouse and Family Alcohol intake: never Patient Tobacco Use Status: Never used Tobacco Review of Systems Const Denies weakness ENT Denies dizziness Card Denies chest pain, Denies chest pain with activity, Denies syncope, Denies rapid heart rate, Denies pedal edema, Denies edema, Denies leg edema, Denies lightheadedness, Denies palpitations, Denies dyspnea, Denies dyspnea on exertion and Denies orthopnea Resp Denies cough, Denies dyspnea and Denies dyspnea on exertion GI Denies hematochezia and Denies change in stool character Musc Denies abnormal gait, Denies muscle cramps, Denies muscle weakness, Denies numbness, Denies radiating pain into limb and Denies tingling Neuro Denies abnormal gait, Denies dizziness, Denies syncope, Denies numbness, Denies tingling and Denies weakness Endo Denies palpitations Physical Exam Vital Signs: Last Vital Signs Pulse 52 04/07/23 10:05 BP 160/68 H 04/07/23 10:05 BMI result Body Mass Index 23.5 Const General: comfortable and no acute distress Orientation/consciousness: patient oriented x3 HEENT Other: Unremarkable Head: Yes normal to inspection Neck Neck: Yes normal visual inspection Chest Chest palpation & inspection: normal inspection of the chest Resp Auscultation: clear to auscultation bilaterally Cardio Palpation: normal PMI Heart sounds: S1 normal heart sound present, S2 normal heart sound present, no gallops, no murmurs and no rubs GI Palpation (GI): Soft to palpation Back/Spine/Pelvis Other: unremarkable Skin General skin exam: no rashes or lesions noted Neuro General: patient oriented x3 Extrem General: Yes normal to inspection Psych Mental Status: mental status grossly normal Assessment & Plan Assessment & Plan (1) Atherosclerotic cardiovascular disease: Code(s): I25.10 - Atherosclerotic heart disease of [place] coronary artery without angina pectoris Plan: Cardiac catheterization from October 2022 with moderate diffuse disease in the RCA. Otherwise only mild CAD only. He can continue aspirin/beta-blockers and statins. Last LDL from [facility] 41 mg/dL. Triglycerides 62 mg/dL. Not sure if he is taking Plavix are not as he does not know any of his medications. (2) Cardiomyopathy: Code(s): I42.9 - Cardiomyopathy, unspecified Plan: In the last echocardiogram from [facility] in October, LVEF 20-25%. [place] akinetic. Otherwise, unremarkable. Possible stress-induced cardiomyopathy. In the repeat echocardiogram, LVEF 59%. Seems improved. (3) Asymmetric septal hypertrophy: Code(s): I42.2 - Other hypertrophic cardiomyopathy Plan: In prior echocardiograms, he has had severe basal septal hypertrophy. No obstructive symptoms. (4) PVC (premature ventricular contraction): Code(s): I49.3 - Ventricular premature depolarization Plan: No specific clinical concerns at this time. Plan Patient frail with memory issues and does not know medications. May benefit from visiting nurse. Coding Level of Care Code Est Pt Level 4 (64387) Diagnoses Atherosclerotic cardiovascular disease I25.10 Cardiomyopathy I42.9 Asymmetric septal hypertrophy I42.2 PVC (premature ventricular contraction) I49.3
== END 2023-04-07 10:29 | disposition home or self-care (01) ==
PROVIDERS: PCP Internal Medicine; Visit Provider Internal Medicine
DX: I25.10 Atherosclerotic heart disease of native coronary artery without angina pectoris (principal); I42.9 Cardiomyopathy, unspecified; I42.2 Other hypertrophic cardiomyopathy; I49.3 Ventricular premature depolarization
CPT/HCPCS: 99214

== ENCOUNTER → 2023-04-07 10:04 | Outpatient (BNVA) | payer MEDICARE, SELFPAY | PROVIDERS: PCP Internal Medicine; Visit Provider Internal Medicine | DX: I25.10 Atherosclerotic heart disease of native coronary artery without angina pectoris (principal); I42.9 Cardiomyopathy, unspecified; I42.2 Other hypertrophic cardiomyopathy; I49.3 Ventricular premature depolarization | CPT/HCPCS: 99212 ==

== ENCOUNTER 2023-05-19 08:56 | Outpatient (AMB) | payer MEDICARE, SELFPAY ==
--- NOTE | 2023-05-19 09:55 | A.OFFVIS_ITS ---
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: No Accompanied by: Self / Same As Patient Allergies HELENA Inhibitors [HELENA INHIBITORS] Allergy (Unknown, Verified 04/07/23 10:09) ANAPHYLAXIS ARB-Angiotensin Receptor Antagonist [ARB-ANGIOTENSIN RECEPTOR ANTAGONIST] Allergy (Unknown, Verified 04/07/23 10:09) ANAPHYLAXIS HPI Comprehensive Diabetes Asmnt Most Recent Diabetes Results: No Data to Display [facility] Medical History (Updated 12/30/22 @ 11:45 by Raj Rick MD) Atherosclerotic cardiovascular disease PVC (premature ventricular contraction) Hyperlipidemia BPH (benign prostatic hyperplasia) GERD (gastroesophageal reflux disease) Ulcerative colitis Vitamin deficiency Dyslipidemia Essential hypertension Overweight (BMI 25.0-29.9) Diabetes type 2, uncontrolled Surgical History Hx of cataract surgery History of esophagogastroduodenoscopy (EGD) History of prostate surgery Hx of colonoscopy Family History Father Diabetes CVD (cardiovascular disease) Mother CVD (cardiovascular disease) Social History Household Members: Spouse and Family Alcohol intake: never Patient Tobacco Use Status: Never used Tobacco Assessment & Plan Assessment & Plan (1) Type 2 diabetes mellitus with unspecified complications: Code(s): E11.8 - Type 2 diabetes mellitus with unspecified complications Plan: Patient at visit for follow-up blood glucose check, and diabetes education Reviewed patient's current blood sugars Patient reports blood sugars below: Date?? Breakfast/Fasting? ? ? Pre-Lunch? ? ? Pre-Supper? ? ? Bedtime? ? ? Notes 05/19? 111? 12? ? 96? 05/17? ? ? 97?129 ? 05/16? 118?170 ? 1210?193 ?C ? 05/14? 102?209 ? 05/13? 94 ? Plan/Goal:? spoke with patient's PCP office patient's last A1c in February 2020 was 7% at this time patient's diabetes seems well controlled. Patient seems to be having memory issues, and continues to lose weight. patient's new PCP is Dr. Nunez, spoke with PCP office about instituting some director of social services for patient. Such is [facility] or PROOF SORTER to assist at home. Patient Instructions: patient instructed follow-up with Diabetes Education nurse in 3 months Coding Level of Care Code Est Pt Level 1 (61663) Diagnoses Type 2 diabetes mellitus with unspecified complications E11.8
== END 2023-05-19 10:23 | disposition home or self-care (01) ==
PROVIDERS: PCP Internal Medicine; Visit Provider Registered Nurse Diabetes Educator
DX: E11.8 Type 2 diabetes mellitus with unspecified complications (principal)

== ENCOUNTER → 2023-05-19 08:56 | Outpatient (BNVA) | payer MEDICARE, SELFPAY | PROVIDERS: PCP Internal Medicine; Visit Provider Registered Nurse Diabetes Educator | DX: E11.8 Type 2 diabetes mellitus with unspecified complications (principal) | CPT/HCPCS: 99211 ==

== ENCOUNTER 2023-08-29 12:29 | Outpatient (AMB) | payer MEDICARE, SELFPAY ==
--- NOTE | 2023-08-29 12:37 | A.OFFVIS_ITS ---
Intake Vital Signs 08/29/23 12:37 Weight 155 lb 1 oz Intake Visit Reasons: 60 min Allergies HELENA Inhibitors [HELENA INHIBITORS] Allergy (Unknown, Verified 04/07/23 10:09) ANAPHYLAXIS ARB-Angiotensin Receptor Antagonist [ARB-ANGIOTENSIN RECEPTOR ANTAGONIST] Allergy (Unknown, Verified 04/07/23 10:09) ANAPHYLAXIS HPI Comprehensive Diabetes Asmnt Most Recent Diabetes Results: No Data to Display [facility] Medical History (Updated 12/30/22 @ 11:45 by Raj Rick MD) Atherosclerotic cardiovascular disease PVC (premature ventricular contraction) Hyperlipidemia BPH (benign prostatic hyperplasia) GERD (gastroesophageal reflux disease) Ulcerative colitis Vitamin deficiency Dyslipidemia Essential hypertension Overweight (BMI 25.0-29.9) Diabetes type 2, uncontrolled Surgical History Hx of cataract surgery History of esophagogastroduodenoscopy (EGD) History of prostate surgery Hx of colonoscopy Family History Father Diabetes CVD (cardiovascular disease) Mother CVD (cardiovascular disease) Social History Household Members: Spouse and Family Alcohol intake: never Patient Tobacco Use Status: Never used Tobacco Assessment & Plan Assessment & Plan (1) Type 2 diabetes mellitus with diabetic polyneuropathy: Comment: Noted weight loss : 14 lbs since October 2021, Pt reports having decreased appetite and increasing in physical activity (moving from apt) Recommend prescribing nutritional supplements Ensure high protein 1-2 a day to prevent further weight loss Code(s): E11.42 - Type 2 diabetes mellitus with diabetic polyneuropathy Qualifiers: Diabetes mellitus fpc insulin use: without fpc use Qualified Code(s): E11.42 - Type 2 diabetes mellitus with diabetic polyneuropathy Plan: Patient at visit for follow-up blood glucose check, and diabetes education Reviewed patient's current blood sugars Patient reports blood sugars below: Date?? Breakfast/Fasting? ? ? Pre-Lunch? ? ? Pre-Supper? ? ? Bedtime? ? ? Notes 08/28? 91? 08/27? ? 97?177 ? 3/23? ? ? 87?188 ? 3/22 ? ? ? 95?158 ? 12/10?95 ?293 ? 12/? 108?201 ? 12/08? 113 ? Topics covered in today?s session included: * Blood glucose targets and how you feel when your blood glucose is in and out of your target ranges. * Monitoring and knowing your A1C. * What can make blood glucose go up and down and preventing high and low blood glucose. * Review of blood sugar targets in expected goal range and outside of expected goal range. * Problem solving and preventing hyper/hypoglycemia. * Sick day management of diabetes. * Using blood sugar results in decision making process in managing diabetes. ?Patient was receptive to information provided and participated in the discussion. Asked?appropriate questions and demonstrated good understanding of the topics discussed.? ? 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
== END 2023-08-29 13:17 | disposition home or self-care (01) ==
PROVIDERS: PCP Internal Medicine; Visit Provider Registered Nurse Diabetes Educator
DX: E11.42 Type 2 diabetes mellitus with diabetic polyneuropathy (principal)

== ENCOUNTER → 2023-08-29 12:29 | Outpatient (BNVA) | payer MEDICARE, SELFPAY | PROVIDERS: PCP Internal Medicine; Visit Provider Registered Nurse Diabetes Educator | DX: E11.42 Type 2 diabetes mellitus with diabetic polyneuropathy (principal) | CPT/HCPCS: 99211 ==

== ENCOUNTER 2023-10-13 08:37 | Outpatient (AMB) | payer MEDICARE, SELFPAY ==
[2023-10-13 08:40] VITALS: BP 130/70; PULSE 54; O2SAT 99; BMI 23.1
--- NOTE | 2023-10-13 08:40 | A.OFFVIS_ITS ---
Vital Signs 10/13/23 08:40 Height 5 ft 8 in Weight 152 lb 1.903 oz BMI 23.1 BP 130/70 Blood Pressure Location Lt brachial Position Sitting Pulse 54 Pulse Source Pulse Oximeter Pulse Oximetry (%) 99 Intake Visit Reasons: 6 mth fu Field Attendant Required: No Accompanied by: Self / Same As Patient Allergies HELENA Inhibitors [HELENA INHIBITORS] Allergy (Unknown, Verified 04/07/23 10:09) ANAPHYLAXIS ARB-Angiotensin Receptor Antagonist [ARB-ANGIOTENSIN RECEPTOR ANTAGONIST] Allergy (Unknown, Verified 04/07/23 10:09) ANAPHYLAXIS Medication List - Last Reconciled 10/13/23 by Raj Rick MD aspirin 81 mg PO DAILY atorvastatin 80 mg PO DAILY azathioprine 50 mg PO DAILY blood sugar diagnostic ([employer] Ultra Test strips) 1 strip miscellaneous TID 30 days clopidogrel (Plavix) 75 mg PO DAILY famotidine 20 mg PO BID insulin glargine (Lantus U-100 Insulin) 9 units subcut insulin syringe-needle U-100 (BD Veo Insulin Syringe Ultra-Fine) As directed lisinopril 5 mg PO DAILY metformin 850 mg PO BID metoprolol succinate ER 25 mg PO DAILY sennosides 17.2 mg PO DAILY PRN tamsulosin 0.8 mg PO DAILY HPI Comments Details: Madi returns for follow-up. In the past, he was seen regarding PVCs, mitral regurgitation and some septal hypertrophy. In October 2022, it seems that he was admitted to [facility] with chest pain and then diagnosed with NSTEMI. Then transferred to [facility]. In that setting, he underwent cardiac catheterization but nothing obstructive. Echocardiogram had shown LV dysfunction. It was felt he might have stress- induced cardiomyopathy. Since last seen, generally seems to doing okay. Very forgetful and also looks very frail. He does not know any of his medications. He states he gets randomly some chest pains but not clear what they are. [facility] Medical History (Updated 12/30/22 @ 11:45 by Raj Rick MD) Atherosclerotic cardiovascular disease PVC (premature ventricular contraction) Hyperlipidemia BPH (benign prostatic hyperplasia) GERD (gastroesophageal reflux disease) Ulcerative colitis Vitamin deficiency Dyslipidemia Essential hypertension Overweight (BMI 25.0-29.9) Diabetes type 2, uncontrolled Surgical History (Reviewed 10/13/23 @ 08:47 by Samantha Bello [facility]) Hx of cataract surgery History of esophagogastroduodenoscopy (EGD) History of prostate surgery Hx of colonoscopy Family History Father Diabetes CVD (cardiovascular disease) Mother CVD (cardiovascular disease) Social History Household Members: Spouse and Family Alcohol intake: never Patient Tobacco Use Status: Never used Tobacco Review of Systems Const Denies chills, Denies fatigue, Denies fever(s), Denies frequent falls, Denies weakness, Denies weight gain and Denies weight loss ENT Denies dizziness Card Denies chest pain, Denies leg edema, Denies lightheadedness, Denies palpitations, Denies dyspnea and Denies dyspnea on exertion Resp Denies cough, Denies dyspnea and Denies dyspnea on exertion GI Denies hematochezia Musc Denies abnormal gait, Denies muscle weakness, Denies numbness, Denies radiating pain into limb and Denies tingling Neuro Denies abnormal gait, Denies dizziness, Denies frequent falls, Denies numbness, Denies tingling and Denies weakness Endo Denies fatigue and Denies palpitations Physical Exam Vital Signs: Last Vital Signs Pulse 54 10/13/23 08:40 BP 130/70 10/13/23 08:40 Pulse Ox 99 10/13/23 08:40 BMI result Body Mass Index 23.1 Const General: comfortable and no acute distress Orientation/consciousness: patient oriented x3 HEENT Other: Unremarkable Head: Yes normal to inspection Neck Neck: Yes normal visual inspection Chest Chest palpation & inspection: normal inspection of the chest Resp Auscultation: clear to auscultation bilaterally Cardio Palpation: normal PMI Heart sounds: S1 normal heart sound present, S2 normal heart sound present, no gallops, no murmurs and no rubs GI Palpation (GI): Soft to palpation Back/Spine/Pelvis Other: unremarkable Skin General skin exam: no rashes or lesions noted Neuro General: patient oriented x3 Extrem General: Yes normal to inspection Psych Mental Status: mental status grossly normal Assessment & Plan Assessment & Plan (1) Atherosclerotic cardiovascular disease: Code(s): I25.10 - Atherosclerotic heart disease of [place] coronary artery without angina pectoris Category: Medical Plan: Cardiac catheterization from October 2022 with moderate diffuse disease in the RCA. Otherwise only mild CAD only. Continue aspirin, beta-blockers statins. Not clear if he is taking Plavix or not but advised to stop. He does not recall the names. Last LDL from [facility] 41 mg/dL. Triglycerides 62 mg/dL. (2) Cardiomyopathy: Code(s): I42.9 - Cardiomyopathy, unspecified Category: Medical Plan: In the last echocardiogram from [facility],2022- LVEF 20-25%. [place] akinetic. Otherwise, unremarkable. Possible stress-induced cardiomyopathy. In the repeat echocardiogram, LVEF 59%. Seems improved. (3) Asymmetric septal hypertrophy: Code(s): I42.2 - Other hypertrophic cardiomyopathy Category: Medical Plan: In prior echocardiograms, he has had severe basal septal hypertrophy. No obstructive symptoms. (4) PVC (premature ventricular contraction): Code(s): I49.3 - Ventricular premature depolarization Category: Medical Plan: No specific clinical concerns at this time. Plan Overall, limited insight, poor memory, frailty extra. Would keep the care very conservative and minimize medications as much able. Medications: Discontinued clopidogrel (Plavix) Discontinued Reason: Doctor's Order 75 mg PO DAILY 90 tabs 3RF Coding Level of Care Code Est Pt Level 4 (19151) Diagnoses Atherosclerotic cardiovascular disease I25.10 Cardiomyopathy I42.9 Asymmetric septal hypertrophy I42.2 PVC (premature ventricular contraction) I49.3
== END 2023-10-13 09:04 | disposition home or self-care (01) ==
PROVIDERS: PCP Internal Medicine; Visit Provider Internal Medicine
DX: I25.10 Atherosclerotic heart disease of native coronary artery without angina pectoris (principal); I42.9 Cardiomyopathy, unspecified; I42.2 Other hypertrophic cardiomyopathy; I49.3 Ventricular premature depolarization
CPT/HCPCS: 99214

== ENCOUNTER → 2023-10-13 08:37 | Outpatient (BNVA) | payer MEDICARE, SELFPAY | PROVIDERS: PCP Internal Medicine; Visit Provider Internal Medicine | DX: I25.10 Atherosclerotic heart disease of native coronary artery without angina pectoris (principal); I42.2 Other hypertrophic cardiomyopathy; I49.3 Ventricular premature depolarization | CPT/HCPCS: 99212 ==

== ENCOUNTER 2023-11-29 12:58 | Outpatient (AMB) | payer MEDICARE, SELFPAY ==
--- NOTE | 2023-11-29 13:31 | MHC.AMDMED ---
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 Accompanied by: Self / Same As Patient Allergies HELENA Inhibitors [HELENA INHIBITORS] Allergy (Unknown, Verified 04/07/23 10:09) ANAPHYLAXIS ARB-Angiotensin Receptor Antagonist [ARB-ANGIOTENSIN RECEPTOR ANTAGONIST] Allergy (Unknown, Verified 04/07/23 10:09) ANAPHYLAXIS HPI Comprehensive Diabetes Asmnt Most Recent Diabetes Results: No Data to Display [facility] Medical History (Updated 12/30/22 @ 11:45 by Raj Rick MD) Atherosclerotic cardiovascular disease PVC (premature ventricular contraction) Hyperlipidemia BPH (benign prostatic hyperplasia) GERD (gastroesophageal reflux disease) Ulcerative colitis Vitamin deficiency Dyslipidemia Essential hypertension Overweight (BMI 25.0-29.9) Diabetes type 2, uncontrolled Surgical History Hx of cataract surgery History of esophagogastroduodenoscopy (EGD) History of prostate surgery Hx of colonoscopy Family History Father Diabetes CVD (cardiovascular disease) Mother CVD (cardiovascular disease) Social History Household Members: Spouse and Family Alcohol intake: never Patient Tobacco Use Status: Never used Tobacco Assessment & Plan Assessment & Plan (1) Type 2 diabetes mellitus with unspecified complications: Code(s): E11.8 - Type 2 diabetes mellitus with unspecified complications Plan: Patient at visit for follow-up blood glucose check, and diabetes education Overall patient's glucose seems to be under control, he has testing twice a day fasting numbers all within target range. Denies any hypoglycemia. Patient has issues with memory can not recall if he is on any medication for diabetes. Patient reports blood sugars below: Last 7 days of blood sugars Date Breakfast/Fasting Pre-Lunch Pre-Supper Bedtime Notes 11/28 110 11/27 101 202 11/26 107 183 11/25 98 261 11/24 96 142 11/23 99 173 11/22 101 230 Patient instructed to contact [employer] customer service for Patient financial assistance to see if he can get help with utility bills Try and remember to bring updated list of medications to next visit Discussed with patient if he would like to [facility] to request a referral from PCP, patient given contact information for clinic Plan/Goal: Patient will follow-up with certified adapted physical educator in 3 months Portions of this note were created using voice recognition software, please excuse any words or phrases that may have been misinterpreted. Coding Level of Care Code Est Pt Level 1 (39007) Diagnoses Type 2 diabetes mellitus with unspecified complications E11.8
== END 2023-11-29 13:41 | disposition home or self-care (01) ==
PROVIDERS: PCP Internal Medicine; Visit Provider Registered Nurse Diabetes Educator
DX: E11.8 Type 2 diabetes mellitus with unspecified complications (principal)

== ENCOUNTER → 2023-11-29 12:58 | Outpatient (BNVA) | payer MEDICARE, SELFPAY | PROVIDERS: PCP Internal Medicine; Visit Provider Registered Nurse Diabetes Educator | DX: E11.65 Type 2 diabetes mellitus with hyperglycemia (principal) | CPT/HCPCS: 99211 ==

== ENCOUNTER 2024-02-29 15:39 | Outpatient (AMB) | payer MEDICARE, SELFPAY ==
--- NOTE | 2024-02-29 15:51 | MHC.AMDMED ---
Intake Intake Visit Reasons: 60 min Flexo Operator Required: No Accompanied by: Self / Same As Patient Allergies HELENA Inhibitors [HELENA INHIBITORS] Allergy (Unknown, Verified 04/07/23 10:09) ANAPHYLAXIS ARB-Angiotensin Receptor Antagonist [ARB-ANGIOTENSIN RECEPTOR ANTAGONIST] Allergy (Unknown, Verified 04/07/23 10:09) ANAPHYLAXIS HPI Comprehensive Diabetes Asmnt Most Recent Diabetes Results: No Data to Display [facility] Medical History (Updated 12/30/22 @ 11:45 by Raj Rick MD) Atherosclerotic cardiovascular disease PVC (premature ventricular contraction) Hyperlipidemia BPH (benign prostatic hyperplasia) GERD (gastroesophageal reflux disease) Ulcerative colitis Vitamin deficiency Dyslipidemia Essential hypertension Overweight (BMI 25.0-29.9) Diabetes type 2, uncontrolled Surgical History Hx of cataract surgery History of esophagogastroduodenoscopy (EGD) History of prostate surgery Hx of colonoscopy Family History Father Diabetes CVD (cardiovascular disease) Mother CVD (cardiovascular disease) Social History Household Members: Spouse and Family Alcohol intake: never Patient Tobacco Use Status: Never used Tobacco Assessment & Plan Assessment & Plan (1) Type 2 diabetes mellitus with unspecified complications: Code(s): E11.8 - Type 2 diabetes mellitus with unspecified complications Plan: Patient at visit for follow-up blood glucose check, and diabetes education Spoke with patient's PCP office, Dr. Nunez, patient's last A1c on 08/05/2023 6.8% Ask office to fax over current med list Patient reports he has not seen [facility] nurse recently Patient has significant issues with memory. Does not recall if he is on any diabetes medications. Has 1 glucose number on his meter of 78 mg/dL. Patient reports blood sugars below: Date Breakfast/Fasting Pre-Lunch Pre-Supper Bedtime Notes 02/28 168 02/27 78 178 02/26 132 189 02/25 102 293 02/24 96 122 02/23 95 151 02/22 97 193 Patient instructed to treat hypoglycemia, any glucose under 81 mg/dL, with 4 oz of fruit juice, 4 glucose tabs then recheck glucose after 15 minutes to be sure it has come up over 100 mg/dL Patient given rule of 15s handout Plan/Goal: Patient will follow-up with Diabetes Education nurse in 3 months Portions of this note were created using voice recognition software, please excuse any words or phrases that may have been misinterpreted. Coding Level of Care Code Est Pt Level 1 (97947) Diagnoses Type 2 diabetes mellitus with unspecified complications E11.8
== END 2024-02-29 16:21 | disposition home or self-care (01) ==
PROVIDERS: PCP Family Medicine; Visit Provider Registered Nurse Diabetes Educator
DX: E11.8 Type 2 diabetes mellitus with unspecified complications (principal)

== ENCOUNTER → 2024-02-29 15:39 | Outpatient (BNVA) | payer MEDICARE, SELFPAY | PROVIDERS: PCP Internal Medicine; Visit Provider Registered Nurse Diabetes Educator | DX: E11.8 Type 2 diabetes mellitus with unspecified complications (principal) | CPT/HCPCS: 99211 ==

== ENCOUNTER 2024-05-24 10:56 | Outpatient (AMB) | payer MEDICARE, SELFPAY ==
--- NOTE | 2024-05-24 11:06 | A.OFFVIS_ITS ---
Intake Intake Visit Reasons: 60 min Email Marketing Assistant Required: No Accompanied by: Self / Same As Patient Allergies HELENA Inhibitors [HELENA INHIBITORS] Allergy (Unknown, Verified 04/07/23 10:09) ANAPHYLAXIS ARB-Angiotensin Receptor Antagonist [ARB-ANGIOTENSIN RECEPTOR ANTAGONIST] Allergy (Unknown, Verified 04/07/23 10:09) ANAPHYLAXIS HPI Comprehensive Diabetes Asmnt Most Recent Diabetes Results: No Data to Display [facility] Medical History (Updated 12/30/22 @ 11:45 by Raj Rick MD) Atherosclerotic cardiovascular disease PVC (premature ventricular contraction) Hyperlipidemia BPH (benign prostatic hyperplasia) GERD (gastroesophageal reflux disease) Ulcerative colitis Vitamin deficiency Dyslipidemia Essential hypertension Overweight (BMI 25.0-29.9) Diabetes type 2, uncontrolled Surgical History Hx of cataract surgery History of esophagogastroduodenoscopy (EGD) History of prostate surgery Hx of colonoscopy Family History Father Diabetes CVD (cardiovascular disease) Mother CVD (cardiovascular disease) Social History Household Members: Spouse and Family Alcohol intake: never Patient Tobacco Use Status: Never used Tobacco Assessment & Plan Assessment & Plan (1) Diabetes type 2, uncontrolled: Code(s): E11.65 - Type 2 diabetes mellitus with hyperglycemia Plan: Patient at visit for follow-up blood glucose check, and diabetes education Pt is poor historian, denies having PCP, I called Dr. Flaherty's office, they report that he was a no show on 04/16/25. Rescheduled PCP appointment while Madi was in the office. Madi is overdue for A1c Patient reports blood sugars below: Date Breakfast/Fasting Pre-Lunch Pre-Supper Bedtime Notes 05/24 93 05/23 84 169 05/22 78 165 05/21 108 194 05/20 126 125 05/19 95 236 05/18 204 Patient instructed to Reviewed with patient how to treat low blood sugar with glucose tabs, patient reports he has glucose tabs at home Patient given written instructions and noted time of PCP appointment Plan/Goal: Patient will go to PCP office for yearly physical Portions of this note were created using voice recognition software, please excuse any words or phrases that may have been misinterpreted. Patient Instructions: Follow-up with Dr. Nunez on 05/29/2024 at 1:15pm Coding Level of Care Code Est Pt Level 1 (08098) Diagnoses Diabetes type 2, uncontrolled E11.65
== END 2024-05-24 11:39 | disposition home or self-care (01) ==
PROVIDERS: PCP Internal Medicine; Visit Provider Registered Nurse Diabetes Educator
DX: E11.65 Type 2 diabetes mellitus with hyperglycemia (principal)

== ENCOUNTER → 2024-05-24 10:56 | Outpatient (BNVA) | payer MEDICARE, SELFPAY | PROVIDERS: PCP Internal Medicine; Visit Provider Registered Nurse Diabetes Educator | DX: E11.65 Type 2 diabetes mellitus with hyperglycemia (principal); Z71.89 Other specified counseling | CPT/HCPCS: 99211 ==

== ENCOUNTER 2024-08-23 13:20 | Outpatient (AMB) | payer MEDICARE, SELFPAY ==
--- NOTE | 2024-08-23 14:07 | MHC.AMDMED ---
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 Required: No Accompanied by: Self / Same As Patient Allergies HELENA Inhibitors [HELENA INHIBITORS] Allergy (Unknown, Verified 04/07/23 10:09) ANAPHYLAXIS ARB-Angiotensin Receptor Antagonist [ARB-ANGIOTENSIN RECEPTOR ANTAGONIST] Allergy (Unknown, Verified 04/07/23 10:09) ANAPHYLAXIS HPI Comprehensive Diabetes Asmnt Most Recent Diabetes Results: Microalb/Creat Ratio 6.1 ug/mg cr 08/04/21 Cholesterol 125 mg/dL 08/04/21 HDL Cholesterol 43 mg/dL 08/04/21 Triglycerides 71 mg/dL 08/04/21 Creatinine 0.93 mg/dL (0.5-1.4) 08/04/21 Blood Urea Nitrogen 11 mg/dL (9-16) 08/04/21 Sodium 141 mmol/L (135-145) 08/04/21 Potassium 4.1 mmol/L (3.3-5.1) 08/04/21 Chloride 103 mmol/L (96-108) 08/04/21 Carbon Dioxide 31 mmol/L (22-29) H 08/04/21 Calcium 9.8 mg/dL (8.4-10.2) 08/04/21 AST 31 U/L (5-37) 08/04/21 ALT 22 U/L (0-40) 08/04/21 Total Protein 6.6 g/dL (6.5-8.0) 08/04/21 Albumin 4.2 g/dL (3.5-5.0) 08/04/21 [facility] Medical History (Updated 12/30/22 @ 11:45 by Raj Rick MD) Atherosclerotic cardiovascular disease PVC (premature ventricular contraction) Hyperlipidemia BPH (benign prostatic hyperplasia) GERD (gastroesophageal reflux disease) Ulcerative colitis Vitamin deficiency Dyslipidemia Essential hypertension Overweight (BMI 25.0-29.9) Diabetes type 2, uncontrolled Surgical History Hx of cataract surgery History of esophagogastroduodenoscopy (EGD) History of prostate surgery Hx of colonoscopy Family History Father Diabetes CVD (cardiovascular disease) Mother CVD (cardiovascular disease) Social History Household Members: Spouse and Family Alcohol intake: never Patient Tobacco Use Status: Never used Tobacco Assessment & Plan Assessment & Plan (1) Diabetes type 2, uncontrolled: Code(s): E11.65 - Type 2 diabetes mellitus with hyperglycemia Plan: Patient at visit for follow-up blood glucose check, and diabetes education Patient reports blood sugars below: Date Breakfast/Fasting Pre-Lunch Pre-Supper Bedtime Notes 08/23 77 08/22 77 200 08/21 79 239 08/20 82 236 08/19 73 164 08/18 222 117 08/17 77 184 Pt missed appt with PCP on 05/29/24 that we made at the last visit Called PCP office, reported that Pt morning glucose is dropping into the 70s. Pt's next appt is on 09/04/24 he is overdue for A1c Reviewed the rule of 15s with Pt to treat low glucose, handout given Portions of this note were created using voice recognition software, please excuse any words or phrases that may have been misinterpreted. Patient Instructions: Patient instructed to Make sure to make doctors appt on 09/04/24 for A1c follow up with diabetes education nurse in 5 months Coding Level of Care Code Est Pt Level 1 (69256) Diagnoses Diabetes type 2, uncontrolled E11.65
--- OUTSIDE RECORDS SUMMARY | 2024-08-23 15:49 | XMS_ITS | Clinical Summary ---
Author Organization [facility] [address] Address [address] [place] [address] Phone Care Team Providers Care Mental Health Case Manager Name Role Phone Starr Nunez MD Primary Care Provider Allergies Active Allergy Reactions Criticality Noted Date Comments Rodney Inhibitors Anaphylaxis High 06/15/2021 Unknown Arb-Angiotensin Receptor Antagonist Swelling High 07/02/2019 Irbesartan 12/25/2021 Other reaction(s): angioedema Intubated 2017. Also on Sulfa at the time. both meds stoped Medications acetaminophen (TYLENOL 8 HOUR) 650 mg 8 hr tablet Take 1 Tablet by mouth 3 times daily for 10 days. 3 Active aspirin 81 mg EC tablet Take 1 Tablet by mouth. 3 Active atorvastatin (LIPITOR) 80 mg tablet Take 1 Tablet by mouth daily. Active azaTHIOprine (IMURAN) 50 mg tablet TAKE 1 TABLET BY MOUTH EVERY DAY 3 Active azelastine (ASTELIN) 137 mcg (0.1 %) nasal spray 2 Sprays by Each Nare route 2 times daily. 4 Active cetirizine (ZyrTEC) 10 mg tablet Take 1 Tablet by mouth daily. 4 Active clopidogreL (PLAVIX) 75 mg tablet Take 1 Tablet by mouth daily. Active famotidine (PEPCID) 20 mg tablet TAKE 1 TABLET BY MOUTH 2 TIMES DAILY. REPLACE OMEPRAZOLE 4 Active fluticasone propionate (FLONASE) 50 mcg/actuation nasal spray SPRAY 1 SPRAY INTO EACH NOSTRIL EVERY DAY 2 Active hydroCHLOROthia zide 12.5 mg tablet TAKE 1 TABLET BY MOUTH EVERY DAY 4 Active lactulose (CHRONULAC) solution Take 15 mL by mouth 2 times daily as needed for Constipation for up to 60 days. 2 Active lisinopriL (PRINIVIL,ZESTR IL) 5 mg tablet Take 1 Tablet by mouth daily. 3 Active metFORMIN (GLUCOPHAGE) 850 mg tablet Take 1 Tablet by mouth daily (with breakfast). 3 Active senna 8.6 mg tablet TAKE 2 TABLETS BY MOUTH DAILY 4 Active OneTouch Ultra Test test strip APPLY 1 STRIP TOPICALLY 3 TIMES DAILY. 4 Active docusate sodium (COLACE) 100 mg capsule Take 1 Capsule by mouth 2 times daily. - Oral Active Active Problems Problem Noted Date Diagnosed Date Carpal tunnel syndrome of right wrist 06/22/2022 Overview (03/08/2024): Last Assessment & Plan: Mr. Tapia reports waking up with numbness and pain of the right hand that he has to shake off and stretch his arm out. He has trouble using his hands and feels that the right hand is weak with poor learning support specialist. On exam, there is some atrophy of the first dorsal interosseous, he is slow to manipulate the fingers but he is able to oppose his thumb to the other digits. Tinel's test of the right wrist is positive. An EMG of the upper extremities on 07/07/2020 is positive for moderately severe carpal tunnel syndrome. We discussed treatment options including cortisone injection at the wrist, wearing a wrist splint and a carpal tunnel release and he would like to try the splint. A prescription was given. Lumbar stenosis with neurogenic claudication Overview (03/08/2024): Last Assessment & Plan: Mr. Tapia has low back tightness with some right greater than left leg heaviness that affects how far he can walk. His MRI of the lumbar spine does confirm L4-5 stenosis that is severe. At this point he is not ready to consider any lumbar surgery but he is willing to entertain the idea of surgery on his neck or wrist. We can reconvene after he is treated for his cervical symptoms and possible carpal tunnel. Cervical myelopathy 04/19/2022 Overview (03/08/2024): Last Assessment & Plan: Mr. Tapia describes neck pain and headaches some of which extends over to the left trapezius is hard to say if the hand weakness is from cervical stenosis/myelopathy as previously thought or if it is related to the carpal tunnel syndrome. He is not anxious to consider surgery but wants the details of his studies. On exam, cervical rotation is 30 degrees to the left 45 degrees to the right, strength is 5/5. The cervical spine MRI dated 03/05/2022 shows significant stenosis at C3-4 mainly from disc osteophyte while there is a right-sided disc osteophyte with foraminal narrowing at C4-5. I discussed the options including an anterior discectomy as previously offered by Dr. Hair or a posterior decompression which will relieve the area around the spinal cord but may or may not help with the headaches. He is very concerned about wound healing at his age and with diabetes. His most recent A1c from 07/20/2022 was 6.8 so I believe he would heal from the surgery. I recommended a posterior decompression but for now, he would like to resume taking his pain pill which helped tremendously. This was prescription strength Tylenol which I have renewed. BPH (benign prostatic hyperplasia) 12/29/2020 DM (diabetes mellitus), type 2 with neurological complications 12/29/2020 Peripheral neuropathy 12/29/2020 Vitamin D deficiency 12/29/2020 Hearing deficit, bilateral 10/21/2020 Overview (03/08/2024): right>left Last Assessment & Plan: Referral for hearing test is done. Due to difficulty in hearing, it took longer time to communicate with him to make sure he understood the plan today and he repeated and verbalized understanding. Age-related cataract of left eye 07/21/2020 Overview (03/08/2024): on 07/25/2020 left eye He is unsure about right eye cataract surgery Diverticula, colon 09/06/2019 Internal hemorrhoids 09/06/2019 Tubular adenoma 09/06/2019 Overview (03/08/2024): CN 01/17/19 repeat 2 years Gastroesophageal reflux disease 06/26/2019 Hypercholesteremia 10/09/2018 Overview (03/08/2024): Last Assessment & Plan: On simvastatin 20 mg at bedtime. Hypertension 10/09/2018 Overview (03/08/2024): Last Assessment & Plan: Blood pressures well controlled Continue hydrochlorothiazide 12.5 mg BP Readings from Last 5 Encounters: 10/20/20 110/65 09/11/20 128/72 07/21/20 139/71 07/03/20 132/78 06/30/20 111/71 Murmur 10/09/2018 Overview (03/08/2024): Cardiology. Per patient Type 2 diabetes mellitus with cataract 9 Overview (03/08/2024): Last Assessment & Plan: Was following with clinical application specialist in [place], he is on 10units lantus by vials and injections. Today he is willing to transfer his diabetes care to us. He is due for refill of Lantus. We discussed options of insulin pen/Solostar pen and he is interested to use this. Teaching with insulin pen by my staff- Kt/nanotechnician is given regarding the technique. He is given information on this. Ulcerative colitis 10/09/2018 Urinary frequency 10/09/2018 Overview (03/08/2024): Last Assessment & Plan: referral to Urology.unclear if he saw the urologist from his previous referral Was following urologist outside facility ??prostate surgery/vague historian/reports using briefs and pads/urinary urgency/cannot make it in time/had urinary accidents.Didnt tolerate flomax--dizzy Reason for referral: incontinence and urine Urgency and frequency. Update 10/20- unsure if followed, will address in next routine follow up Encounters Date Type Department Care Team Description 08/10/2024 1:50 PM EST Office Visit Gastroenterology - [place] [address] [place] [address] Toño Eason MD Proctitis (Primary Dx); Gastroesophageal reflux disease without esophagitis; Type 2 diabetes mellitus with cataract (CMS/HCC) from Last 3 Months Immunizations Name Administration Dates Next Due Influenza trivalent, 0.5mL ( Fluzone High-dose) 65yo and older 03/19/2022 Influenza trivalent, with pr eservative (Fluzone; Afluria) 6mo and older 05/25/2021,02/15/2020,03/17/2019,03/13,02/28/2017 Pneumococcal polysaccharide 23 valent (Pneumovax 23) 2yo and older 08/04/2014 Tdap Tetanus diptheria acell ular pertussis (Boostrix; Adacel) 7yo and older 08/04/2012 Surgical History Surgery Date Site/Laterality Comments OTHER SURGICAL HISTORY PROCEDURE: ---- OTHER ----; COMMENT: Prostate Surg OTHER SURGICAL HISTORY Left PROCEDURE: ---- OTHER ----; COMMENT: left shoulder surgery COLONOSCOPY 2018 PROCEDURE: HISTORICAL COLONOSCOPY; COMMENT: no active colitis COLONOSCOPY 06/11/2020 PROCEDURE: HISTORICAL COLONOSCOPY; COMMENT: Minimal proctitis, multiple surveillance biopsies obtained: no dysplasia. minimal proctitis. Medical History Medical History Date Comments Diverticula, colon 09/06/2019 DX:Diverticul a, colon Gastroesophageal reflux disease 06/26/2019 DX:Gastroesophageal reflux disease History of angioedema 06/26/2019 DX:History of angioedema TULUKSAK (hard of hearing) 04/26/2019 DX:T[place]SAK (winter rd of hearing) Hypercholesteremia 10/09/2018 DX:Hyperchole steremia Hypertension 10/09/2018 DX:Hypertension Internal hemorrhoids 09/06/2019 DX:Internal hemorrhoids Murmur 10/09/2018 DX:Murmur; COMME NT: Cardiology. Per patient Tubular adenoma 09/06/2019 DX:Tubular adeno ma; COMMENT: CN 01/17/19 repeat 2 years Diabetes mellitus type 2, uncomplicated 10/09/2018 DX:Diabetes mellitus type 2, uncomplicated (HCC) Ulcerative colitis with comp lication (CMS/HCC) 10/09/2018 DX:Ulcerative colitis with complication (HCC) Urinary frequency 10/09/2018 DX:Urinary marcus quency COVID-19 virus infection 09/28/2019 DX:COVI D-19 virus infection Type 2 diabetes mellitus wit h cataract 10/09/2018 DX:Type 2 diabetes mellitus with cataract (HCC) BPH (benign prostatic hyperplasia) 12/29/2020 DX:BPH (benign prostatic hyperplasia) Vitamin D deficiency 12/29/2020 DX:Vitamin D deficiency DM (diabetes mellitus), type 2 with neurological complications (CMS/HCC) 12/29/2020 DX:DM (diabetes m ellitus), type 2 with neurological complications (HCC) Peripheral neuropathy 12/29/2020 DX:Periphe ral neuropathy Normal esophagogastroduodeno scopy (EGD) 02/17/2022 DX:Normal esophagogastroduod enoscopy (EGD) Family History Medical History Relation Name Comments Other: Other Brother 1 stomach cancer No Known Problems Brother 2 Diabetes Father Other: Other Father pacemaker Coronary artery disease Mother Diabetes Sister 1 No Known Problems Sister 2 No Known Problems Sister 3 Other: murmur Son 1 Relation Name Status Comments Brother 1 Brother 2 Alive Daughter Alive Father Mother Sister 1 Sister 2 Alive Sister 3 Alive Sister 4 Son 1 Alive Son 2 Alive Social History Tobacco Use Types Packs/Day Years Used Date Smoking Tobacco: Never Smokeless Tobacco: Never Alcohol Use Standard Drinks/Week Comments No 0 (1 standard drink = 0.6 oz pur e alcohol) Sex and Gender Information Value Date Recorded Sex Assigned at Not on file Legal Sex Male 7:06 PM EST Gender Identity Not on file Sexual Orientation Not on file Obstetrics History Last Filed Vital Signs Vital Sign Reading Time Taken Comments Blood Pressure 141/60 08/10/2024 1:01 PM EST Pulse 68 03/05/2024 7:29 AM EDT Temperature - - Respiratory Rate - - Oxygen Saturation - - Inhaled Oxygen Concentration - - Weight 62.6 kg (138 lb) 08/10/2024 1:01 PM EST Height 170.2 cm (5' 7 ) 08/10/2024 1:01 PM EST Body Mass Index 21.61 08/10/2024 1:01 PM EST Plan of Treatment Upcoming Encounters Date Type Department Care Team (Late st Contact Info) Description 09/04/2024 2:45 PM EDT Office Visit Adult Medicine - [place] [address] [place] [address] Starr Nunez MD [address] [place] [address] Health Maintenance Due Date Last Done Comments Diabetes: Annual Retina Eye Exam 1955 Zoster Vaccines (1 of 2) 1962 Pneumococcal Vaccine: 50+ Years (2 of 2 - PCV) 08/05/2015 08/04/2014 RSV Immunization Patients 60+ Years Old (1 - 1-dose 75+ series) 2018 Depression Screening 05/15/2022 Falls Risk Assessment 05/15/2022 Medicare Annual Wellness Visit 05/15/2022 Social Influencers of Health Screening 05/15/2022 Colorectal Cancer Screening: Colonoscopy 06/11/2022 06/11/2020 DTaP,Tdap,and Td Vaccines (2 - Td or Tdap) 08/04/2022 08/04/2012 COVID-19 Vaccine ( season) 2024 06/08/2021, 09/23/2020, 08/26/2020 Influenza Vaccine (#1) 2024 , 05/25/2021, 02/15/2020, Additional history exists Diabetes: Annual Foot Exam 03/22/2024 03/22/2023 Diabetes: Annual Urine Albumin-Creatinine Ratio (uACR) 08/04/2024 08/05/2023 Diabetes: Blood Sugar Control Test (HGBA1C) 02/10/2025 08/10/2024, 08/05/2023 Diabetes: Annual GFR (Glomerular Filtration Rate) 08/10/2025 08/10/2024, 08/05/2023 Hypertension/CHF/CAD Annual BMP Blood Test 08/10/2025 08/10/2024, 08/05/2023 Cholesterol Screening (Lipid Panel) 08/04/2028 08/05/2023 HIB Vaccines Aged Out No longer eligi ble based on patient's age to complete this topic HPV Vaccines Aged Out No longer eligi ble based on patient's age to complete this topic Hepatitis A Vaccines Aged Out No long er eligible based on patient's age to complete this topic Hepatitis B Vaccines Aged Out No long er eligible based on patient's age to complete this topic IPV Vaccines Aged Out No longer eligi ble based on patient's age to complete this topic MMR Vaccines Aged Out No longer eligi ble based on patient's age to complete this topic Meningococcal ACWY Vaccine Aged Out N o longer eligible based on patient's age to complete this topic Meningococcal B Vacine Aged Out No lo nger eligible based on patient's age to complete this topic RSV Immunization Patients Under 20 months Aged Out No longer eligible based on patient's age to complete this topic Varicella Vaccines Aged Out No longer eligible based on patient's age to complete this topic Procedures Procedure Name Priority Date/Time Associated Diagnosis Comments CBC WITH AUTO DIFFERENTIAL Routine 08/10/2024 1:33 PM EST Proctitis Gastroesophageal reflux disease without esophagitis Type 2 diabetes mellitus with cataract (CMS/HCC) C-REACTIVE PROTEIN Routine 08/10/2024 1: 33 PM EST Proctitis Gastroesophageal reflux disease without esophagitis Type 2 diabetes mellitus with cataract (CMS/HCC) HEMOGLOBIN A1C Routine 08/10/2024 1:33 PM EST Proctitis Gastroesophageal reflux disease without esophagitis Type 2 diabetes mellitus with cataract (CMS/HCC) COMPREHENSIVE METABOLIC PANEL Routine 08/10/2024 1:33 PM EST Proctitis Gastroesophageal reflux disease without esophagitis Type 2 diabetes mellitus with cataract (CMS/HCC) CBC AND DIFFERENTIAL Routine 08/10/2024 1:33 PM EST Proctitis Gastroesophageal reflux disease without esophagitis Type 2 diabetes mellitus with cataract (CMS/HCC) HM URINE ALBUMIN CREATININE RATIO Routine 08/05/2023 LIPID PANEL Routine 08/05/2023 HM DIABETES FOOT EXAM Routine 03/22/2023 COLONOSCOPY Routine 06/11/2020 from Last 3 Months or Most Recently Relevant to Health Maintenance Results * (ABNORMAL) CBC auto differential (08/10/2024 1:33 PM EST) [facility] WBC 4.5(L) 4.8 - 10.8 K/mcL LAB HEMETOLOGY METHOD 08/10/2024 6:20 PM [facility] RBC 3.60(L) 4.50 - 5.50 M/mcL LAB HEMETOLOGY METHOD 08/10/2024 6:20 PM [facility] Hemoglobin 11.2(L) 13.5 - 17.5 g/dL LAB HEMETOLOGY METHOD 08/10/2024 6:20 PM [facility] Hematocrit 34.2(L) 42.0 - 54.0 % LAB HEMETOLOGY METHOD 08/10/2024 6:20 PM [facility] MCV 94.0 79.0 - 98.0 FL LAB HEMETOLOGY METHOD 08/10/2024 6:20 PM [facility] MCH 30.8 27.0 - 32.0 pcg LAB HEMETOLOGY METHOD 08/10/2024 6:20 PM [facility] MCHC 32.7 32.0 - 37.0 g/dL LAB HEMETOLOGY METHOD 08/10/2024 6:20 PM [facility] RDW 13.2 11.0 - 15.0 % LAB HEMETOLOGY METHOD 08/10/2024 6:20 PM [facility] Platelets 247 130 - 400 K/mcL LAB HEMETOLOGY METHOD 08/10/2024 6:20 PM [facility] MPV 10.5 7.0 - 11.0 FL LAB HEMETOLOGY METHOD 08/10/2024 6:20 PM [facility] NRBC 0.0 <1.0 % LAB HEMETOLOGY METHOD 08/10/2024 6:20 PM [facility] NRBC Absolute 0.00 <0.10 K/mcL LAB HEMETOLOGY METHOD 08/10/2024 6:20 PM [facility] Neutrophils Relative 30.6 % LAB HEMETOLOGY METHOD 08/10/2024 6:20 PM [facility] Lymphocytes Relative 55.5 % LAB HEMETOLOGY METHOD 08/10/2024 6:20 PM [facility] Monocytes Relative 10.6 % LAB HEMETOLOGY METHOD 08/10/2024 6:20 PM [facility] Eosinophils Relative 2.2 % LAB HEMETOLOGY METHOD 08/10/2024 6:20 PM [facility] Basophils Relative 0.9 % LAB HEMETOLOGY METHOD 08/10/2024 6:20 PM [facility] Immature Granulocytes Relative 0.2 % LAB HEMETOLOGY METHOD 08/10/2024 6:20 PM [facility] Neutrophils Absolute 1.38(L) 1.50 - 7.00 K/mcL LAB HEMETOLOGY METHOD 08/10/2024 6:20 PM [facility] Lymphocytes Absolute 2.51 1.00 - 5.00 K/mcL LAB HEMETOLOGY METHOD 08/10/2024 6:20 PM [facility] Monocytes Absolute 0.48 0.20 - 1.00 K/mcL LAB HEMETOLOGY METHOD 08/10/2024 6:20 PM [facility] Eosinophils Absolute 0.10 0.00 - 0.50 K/mcL LAB HEMETOLOGY METHOD 08/10/2024 6:20 PM [facility] Basophils Absolute 0.04 0.00 - 0.20 K/mcL LAB HEMETOLOGY METHOD 08/10/2024 6:20 PM [facility] Immature Granulocytes Absolute 0.01 0.00 - 0.03 K/mcL LAB HEMETOLOGY METHOD 08/10/2024 6:20 PM [facility] Blood Venous blood specimen / Unknown Venipuncture / Unknown 08/10/2024 1:33 PM EST 08/10/2024 1:33 PM EST us Toño Eason MD LAB BLOOD ORDERABLES Final Result Performing Organization Address [facility]/ZIP Co de Phone Number [facility] [address] [place] [address], [place] [phone] * (ABNORMAL) C-reactive protein (08/10/2024 1:33 PM EST) [facility] C-Reactive Protein 0.66(H) <=0.50 mg/dL LAB CHEMISTRY METHOD 08/10/2024 7:36 PM EST [facility] Blood Venous blood specimen / Unknown Venipuncture / Unknown 08/10/2024 1:33 PM EST 08/10/2024 1:33 PM EST us Toño Eason MD LAB BLOOD ORDERABLES Final Result Performing Organization Address [facility] Co de Phone Number [facility] [address] [place] [address], [place] [phone] * Hemoglobin A1c (08/10/2024 1:33 PM EST) [facility] Hemoglobin A1C 6.4 <6.5 % LAB CHEMISTRY METHOD 08/10/2024 10:08 PM EST [facility] Mean Bld Glu Estim. 137 mg/dL LAB CHEMISTRY METHOD 08/10/2024 10:08 PM EST [facility] Blood Venous blood specimen / Unknown Venipuncture / Unknown 08/10/2024 1:33 PM EST 08/10/2024 1:33 PM EST us Toño Eason MD LAB BLOOD ORDERABLES Final Result Performing Organization Address [facility]/ZIP Co de Phone Number [facility] [address] [place] [address], [place] [phone] * (ABNORMAL) Comprehensive metabolic panel (08/10/2024 1:33 PM EST) Sodium 142 133 - 145 mmol/L LAB CHEMISTRY METHOD 08/10/2024 7:39 PM [facility] Potassium 3.9 3.5 - 5.5 mmol/L LAB CHEMISTRY METHOD 08/10/2024 7:39 PM [facility] Chloride 105 96 - 110 mmol/L LAB CHEMISTRY METHOD 08/10/2024 7:39 PM [facility] CO2 28 21 - 32 mmol/L LAB CHEMISTRY METHOD 08/10/2024 7:39 PM [facility] Anion Gap 9 3 - 11 LAB CHEMISTRY METHOD 08/10/2024 7:39 PM [facility] Glucose 118(H) 70 - 100 mg/dL LAB CHEMISTRY METHOD 08/10/2024 7:39 PM [facility] BUN 17 5 - 25 mg/dL LAB CHEMISTRY METHOD 08/10/2024 7:39 PM [facility] Creatinine 1.03 0.70 - 1.30 mg/dL LAB CHEMISTRY METHOD 08/10/2024 7:39 PM [facility] eGFR 73 >=60 mL/min/1. 73m2 LAB CHEMISTRY METHOD 08/10/2024 7:39 PM [facility] Comment:Calculation based on the??Chronic Kidney Disease Epidemiology Collaboration (CKD-EPI) equation refit??without adjustment for race. BUN/Creatinine Ratio 16.5 LAB CHEMISTRY METHOD 08/10/2024 7:39 PM [facility] Calcium 8.8 8.5 - 10.5 mg/dL LAB CHEMISTRY METHOD 08/10/2024 7:39 PM [facility] AST (SGOT) 38 10 - 42 unit/L LAB CHEMISTRY METHOD 08/10/2024 7:39 PM [facility] ALT (SGPT) 39 10 - 60 unit/L LAB CHEMISTRY METHOD 08/10/2024 7:39 PM EST [facility] Alkaline Phosphatase 51 42 - 121 unit/L LAB CHEMISTRY METHOD 08/10/2024 7:39 PM [facility] Total Protein 6.9 6.0 - 8.0 g/dL LAB CHEMISTRY METHOD 08/10/2024 7:39 PM [facility] Albumin 3.9 3.2 - 5.0 g/dL LAB CHEMISTRY METHOD 08/10/2024 7:39 PM [facility] Total Bilirubin 0.6 0.0 - 1.4 mg/dL LAB CHEMISTRY METHOD 08/10/2024 7:39 PM [facility] Blood Venous blood specimen / Unknown Venipuncture / Unknown 08/10/2024 1:33 PM EST 08/10/2024 1:33 PM EST Toño Eason MD LAB BLOOD ORDERABLES Final Result [facility] [address] [place] [address], [place] [phone] * Urine Albumin Creatinine Ratio (08/05/2023) Pathologist [facility] Urine Albumin Creatinine Ratio Abstracted Historical Provider HEALTH MAINTENANCE Final Result * Lipid panel (08/05/2023) [facility] LDL/HDL Ratio 2 0 - 4 Triglycerides 82 0 - 150 mg/dL Cholesterol 99 0 - 200 mg/dL HDL 55 >=40 mg/dL LDL Cholesterol 28 0 - 100 mg/dL Blood Venous blood specimen / Unknown Historical Provider LAB BLOOD ORDERABLES Noelle l Result * Diabetes Foot Exam (03/22/2023) Pathologist [facility] Diabetes: Annual Foot Exam Abstracted Historical Provider HEALTH MAINTENANCE Final Result * Colonoscopy (06/11/2020) HM Colonoscopy No Interpretation , Abstracted Anatomical Region Laterality Modality Other us Historical Provider HEALTH MAINTENANCE Final Result from Last 3 Months or Most Recently Relevant to Health Maintenance Insurance [employer] MEDICARE ADVANTAGE MEDICAID - [place] Care Teams Mental Health Case Manager Relationship Specialty Start Date End Date Starr Nunez MD [address] [place] [id number] PCP - General Internal Medicine 06/23/21
--- OUTSIDE RECORDS SUMMARY | 2024-08-23 15:49 | XMS_ITS | Encounter Summary ---
Author Organization [facility] [address] Address [address] [place] [address] Care Team Providers Care Customer Experience Manager Name Role Phone Starr Nunez MD Primary Care Provider Reason for Visit * Reason Comments Med Management Imuran Ulcerative Colitis Encounter Details Date Type Department Care Team (Late st Contact Info) Description 08/10/2024 1:50 PM EST Office Visit Gastroenterology - [place] [address] [facility] [address] [place] [phone] Toño Eason MD [address] [facility] [address] [place] [address] Proctitis (Primary Dx); Gastroesophageal reflux disease without esophagitis; Type 2 diabetes mellitus with cataract ([facility]) Social History Tobacco Use Types Packs/Day Years Used Date Smoking Tobacco: Never Smokeless Tobacco: Never Alcohol Use Standard Drinks/Week Comments No 0 (1 standard drink = 0.6 oz pur e alcohol) Sex and Gender Information Value Date Recorded Sex Assigned at Not on file Legal Sex Male 7:06 PM EST Gender Identity Not on file Sexual Orientation Not on file documented as of this encounter Last Filed Vital Signs Vital Sign Reading Time Taken Comments Blood Pressure 141/60 08/10/2024 1:01 PM EST Pulse - - Temperature - - Respiratory Rate - - Oxygen Saturation - - Inhaled Oxygen Concentration - - Weight 62.6 kg (138 lb) 08/10/2024 1:01 PM EST Height 170.2 cm (5' 7 ) 08/10/2024 1:01 PM EST Body Mass Index 21.61 08/10/2024 1:01 PM EST documented in this encounter Progress Notes * Toño Eason MD - 08/10/2024 1:50 PM EST CONSULT REQUEST CHIEF COMPLAINT: Med Management (Imuran) and Ulcerative Colitis HPI: Madi Tapia Jr. is a 79 y.o. old male who was referred to us by Starr Nunez* presentsto the gastroenterology department today for evaluation of ulcerative colitis. Very pleasant hard of hearing elderly -[place] gentleman with a history of ulcerative pancolitis. During last colonoscopy he was found to have disease only in the rectum. The patient is not sure of the current medications. However, we have kept the patient on azathioprine. He currently denies any discomfort abdominal pain rectal bleeding etc. ROS: Review of Systems Genitourinary: Positive for difficulty urinating and dysuria. All other systems reviewed and are negative. PAST MEDICAL HISTORY: has a past medical history of BPH (benign prostatic hyperplasia) (12/29/2020), COVID-19 virus infection (09/28/2019), Diabetes mellitus type 2, uncomplicated ([facility]) (10/09/2018), Diverticula, colon (09/06/2019), DM (diabetes mellitus), type 2 with neurological complications ([facility]) (12/29/2020), Gastroesophageal reflux disease (06/26/2019), History of angioedema (06/26/2019), [place] [employer] (hard of hearing) (04/26/2019), Hypercholesteremia (10/09/2018), Hypertension (10/09/2018), Internal hemorrhoids (09/06/2019), Murmur (10/09/2018), Normal esophagogastroduodenoscopy (EGD) (02/17/2022), Peripheral neuropathy (12/29/2020), Tubular adenoma (09/06/2019), Type 2 diabetes mellitus with cataract ([facility]) (10/09/2018), Ulcerative colitis with complication ([facility]) (10/09/2018), Urinary frequency (10/09/2018), and Vitamin D deficiency (12/29/2020). PAST SURGICAL HISTORY: has a past surgical history that includes Other surgical history; Other surgical history (Left); Colonoscopy (2019); and Colonoscopy (06/11/2020). SOCIAL HISTORY: reports that he has never smoked. He has never used smokeless tobacco. He reports that he does not drink alcohol and does not use drugs. FAMILY HISTORY: family history includes Coronary artery disease (age of onset: 51.00) in his mother; Diabetes in his father and sister; No Known Problems in his brother, sister, and sister; Other: Other in his brother and father; Other: murmur in his son. MEDICATIONS: Home Medications acetaminophen (TYLENOL 8 HOUR) 650 mg 8 hr tablet Take 1 Tablet by mouth 3 times daily for 10 days. aspirin 81 mg EC tablet Take 1 Tablet by mouth. atorvastatin (LIPITOR) 80 mg tablet Take 1 Tablet by mouth daily. azaTHIOprine (IMURAN) 50 mg tablet TAKE 1 TABLET BY MOUTH EVERY DAY azelastine (ASTELIN) 137 mcg (0.1 %) nasal spray 2 Sprays by Each Nare route 2 times daily. cetirizine (ZyrTEC) 10 mg tablet Take 1 Tablet by mouth daily. clopidogreL (PLAVIX) 75 mg tablet Take 1 Tablet by mouth daily. docusate sodium (COLACE) 100 mg capsule Take 1 Capsule by mouth 2 times daily. - Oral famotidine (PEPCID) 20 mg tablet TAKE 1 TABLET BY MOUTH 2 TIMES DAILY. REPLACE OMEPRAZOLE fluticasone propionate (FLONASE) 50 mcg/actuation nasal spray SPRAY 1 SPRAY INTO EACH NOSTRIL EVERYDAY hydroCHLOROthiazide 12.5 mg tablet TAKE 1 TABLET BY MOUTH EVERY DAY lactulose (CHRONULAC) solution Take 15 mL by mouth 2 times daily as needed for Constipation for up to 60 days. lisinopriL (PRINIVIL,ZESTRIL) 5 mg tablet Take 1 Tablet by mouth daily. metFORMIN (GLUCOPHAGE) 850 mg tablet Take 1 Tablet by mouth daily (with breakfast). OneTouch Ultra Test test strip APPLY 1 STRIP TOPICALLY 3 TIMES DAILY. senna 8.6 mg tablet TAKE 2 TABLETS BY MOUTH DAILY ALLERGIES: Allergies Allergen Reactions Rodeny Inhibitors Anaphylaxis Unknown Arb-Angiotensin Receptor Antagonist Swelling Irbesartan Other reaction(s): angioedema Intubated 2017. Also on Sulfa at the time. both meds stoped PHYSICAL EXAM: Visit Vitals BP (!) 141/60 Ht 1.702 m (67 ) Wt 62.6 kg (138 lb) BMI 21.61 kg/m?? Smoking Status Never BSA 1.73 m?? Physical Exam Vitals reviewed. Constitutional: Appearance: Normal appearance. He is not ill-appearing or toxic-appearing. HENT: Head: Normocephalic and atraumatic. Ears: Comments: He is very hard of hearing Mouth/Throat: Mouth: Mucous membranes are moist. Pharynx: Oropharynx is clear. Eyes: Pupils: Pupils are equal, round, and reactive to light. Cardiovascular: Rate and Rhythm: Normal rate. Pulses: Normal pulses. Pulmonary: Effort: Pulmonary effort is normal. Abdominal: General: Abdomen is flat. Musculoskeletal: General: Normal range of motion. Cervical back: Neck supple. Comments: He does have scoliosis kyphosis, difficulty walking but without cane or assistive device. Skin: General: Skin is warm and dry. Neurological: General: No focal deficit present. Mental Status: He is alert. Psychiatric: Mood and Affect: Mood normal. LABS: Lab Results Component Value Date WBC 4.5 (L) 08/10/2024 HGB 11.2 (L) 08/10/2024 HCT 34.2 (L) 08/10/2024 MCV 94.0 08/10/2024 PLT 247 08/10/2024 , Lab Results Component Value Date NA 142 08/10/2024 K 3.9 08/10/2024 CL 105 08/10/2024 CO2 28 08/10/2024 GLUCOSE 118 (H) 08/10/2024 BUN 17 08/10/2024 CREATININE 1.03 08/10/2024 CALCIUM 8.8 08/10/2024 PROT 6.9 08/10/2024 ALBUMIN 3.9 08/10/2024 BILITOT 0.6 08/10/2024 AST 38 08/10/2024 ALT 39 08/10/2024 ALKPHOS 51 08/10/2024 EGFR 73 08/10/2024 , and Lab Results Component Value Date CRP 0.66 (H) 08/10/2024 IMAGING: IMPRESSION: 1. Proctitis 2. Gastroesophageal reflux disease without esophagitis 3. Type 2 diabetes mellitus with cataract ([facility]) PLAN: This is an 79-year-old gentleman with history of ulcerative proctitis. The patient currently on daily azathioprine. It is not clear whether if the patient takes medications. Hence, he is not sure of the list of the medications. I did contact the patient's who suggested the patient's slight confusion may be related to his hard of hearing. Following the visit, we sent the patient downstairs for lab work. According to this, he has mildly elevated CRP level. He does have a history of acid reflux disease. He does take oral famotidine as needed. This issue seems to be stable. I also did order lab work for type 2 diabetes given the fact that he had had lab work over a year ago. Results will be followed by his primary care physician. I would like to thank Starr Nunez* for the opportunity to partake in the patient's care. Orders Placed This Encounter Procedures CBC and differential Comprehensive metabolic panel Hemoglobin A1c C-reactive protein None Signatures Toño Eason MD Board Certified, Gastroenterology and Internal Medicine Gastroenterology and Hepatology Practice [email or web address] [phone] [place] [id number] [email or web address] cc: Starr Nunez*, Starr Nunez MD documented in this encounter Plan of Treatment Upcoming Encounters Date Type Department Care Team (Late st Contact Info) Description 09/04/2024 2:45 PM EDT Office Visit Adult Medicine - [place] [address] [place] [address] Starr Nunez MD [address] [place] [address] documented as of this encounter Results * (ABNORMAL) C-reactive protein (08/10/2024 1:33 PM EST) [facility] Signature C-Reactive Protein 0.66(H) <=0.50 mg/dL LAB CHEMISTRY METHOD 08/10/2024 7:36 PM EST [facility] Blood Venous blood specimen / Unknown Venipuncture / Unknown 08/10/2024 1:33 PM EST 08/10/2024 1:33 PM EST Toño Eason MD LAB BLOOD ORDERABLES Final Result Performing Organization Address [facility]/ZIP Co de Phone Number [facility] [address] [place] [address], [place] [phone] * Hemoglobin A1c (08/10/2024 1:33 PM EST) [facility] Hemoglobin A1C 6.4 <6.5 % LAB CHEMISTRY METHOD 08/10/2024 10:08 PM EST [facility] Mean Bld Glu Estim. 137 mg/dL LAB CHEMISTRY METHOD 08/10/2024 10:08 PM EST [facility] Blood Venous blood specimen / Unknown Venipuncture / Unknown 08/10/2024 1:33 PM EST 08/10/2024 1:33 PM EST us Toño Eason MD LAB BLOOD ORDERABLES Final Result Performing Organization Address [facility]/ZIP Co de Phone Number [facility] [address] [place] [address], [place] [phone] * (ABNORMAL) Comprehensive metabolic panel (08/10/2024 1:33 PM EST) [facility] Sodium 142 133 - 145 mmol/L LAB CHEMISTRY METHOD 08/10/2024 7:39 PM EST [facility] Potassium 3.9 3.5 - 5.5 mmol/L LAB CHEMISTRY METHOD 08/10/2024 7:39 PM [facility] Chloride 105 96 - 110 mmol/L LAB CHEMISTRY METHOD 08/10/2024 7:39 PM EST [facility] CO2 28 21 - 32 mmol/L LAB CHEMISTRY METHOD 08/10/2024 7:39 PM EST [facility] Anion Gap 9 3 - 11 LAB CHEMISTRY METHOD 08/10/2024 7:39 PM [facility] Glucose 118(H) 70 - 100 mg/dL LAB CHEMISTRY METHOD 08/10/2024 7:39 PM [facility] BUN 17 5 - 25 mg/dL LAB CHEMISTRY METHOD 08/10/2024 7:39 PM [facility] Creatinine 1.03 0.70 - 1.30 mg/dL LAB CHEMISTRY METHOD 08/10/2024 7:39 PM [facility] eGFR 73 >=60 mL/min/1. 73m2 LAB CHEMISTRY METHOD 08/10/2024 7:39 PM [facility] Comment:Calculation based on the??Chronic Kidney Disease Epidemiology Collaboration (CKD-EPI) equation refit??without adjustment for race. BUN/Creatinine Ratio 16.5 LAB CHEMISTRY METHOD 08/10/2024 7:39 PM [facility] Calcium 8.8 8.5 - 10.5 mg/dL LAB CHEMISTRY METHOD 08/10/2024 7:39 PM [facility] AST (SGOT) 38 10 - 42 unit/L LAB CHEMISTRY METHOD 08/10/2024 7:39 PM [facility] ALT (SGPT) 39 10 - 60 unit/L LAB CHEMISTRY METHOD 08/10/2024 7:39 PM [facility] Alkaline Phosphatase 51 42 - 121 unit/L LAB CHEMISTRY METHOD 08/10/2024 7:39 PM [facility] Total Protein 6.9 6.0 - 8.0 g/dL LAB CHEMISTRY METHOD 08/10/2024 7:39 PM [facility] Albumin 3.9 3.2 - 5.0 g/dL LAB CHEMISTRY METHOD 08/10/2024 7:39 PM [facility] Total Bilirubin 0.6 0.0 - 1.4 mg/dL LAB CHEMISTRY METHOD 08/10/2024 7:39 PM [facility] Blood Venous blood specimen / Unknown Venipuncture / Unknown 08/10/2024 1:33 PM EST 08/10/2024 1:33 PM EST us Toño Eason MD LAB BLOOD ORDERABLES Final Result [facility] [address] [place] [address], documented in this encounter Visit Diagnoses Diagnosis Proctitis- Primary Other specified disorder of rectum and anus Gastroesophageal reflux disease without esophagitis Esophageal reflux Type 2 diabetes mellitus with cataract documented in this encounter Care Teams Customer Experience Manager Relationship Specialty Start Date End Date Starr Nunez MD [address] [place] [id number] PCP - General Internal Medicine 06/23/21 documented as of this encounter
--- OUTSIDE RECORDS SUMMARY | 2024-08-23 15:49 | XMS_ITS | Patient Health Record ---
Author Organization [facility] Address [address] [place] [address] Care Team Providers Care Body Shop Worker Name Role Phone Annalee Swenson Primary Care Provider Unavailable Black, Keli Unavailable [phone] Allergies No Known Allergies Reason For Referral No Information Medications Medication SIG (Take, Route, Frequency, Duration) Notes Start Date End Date Status Omeprazole 20 MG TAKE ONE CAPSULE BY MOUTH EVERY DAY Oral for 30 Active zzzCompression Stockings 20-30mm Hg . . . for . Active OneTouch Ultra Test - USE TWICE A DAY In Vitro for 50 Active zzzCompression Stockings 20-30mm Hg . . . for . Not-Taking Lantus 100 UNIT/ML INJECT 10 UNITS SUBCUTANEOUSLY AT BEDTIME. Subcutaneous for 28 Active zzzCompression Stockings 20-30mm Hg . . . for . Not-Taking glipiZIDE 5 MG TAKE 2 TABS BEFORE BREAKFAST AND BEFORE SUPPER Oral for 45 Active Extra Depth Orthopedic Shoes (1 Pair) with Customized Heat Molded Multidensity Innersoles (3 Pair) as directed Dx: NIDDM/Polyneuropathy (E11.42), Hammertoe Foot Deformity (M20.41,M20.42), Preulcerative Skin Lesion(s) (L85.1 08/04/2018 Not-Taking Simvastatin 20 MG TAKE 1 TABLET BY TATYANA TH AT BEDTIME Oral for 90 Active Extra Depth Orthopedic Shoes (1 Pair) with Customized Heat Molded Multidensity Innersoles (3 Pair) as directed Dx: NIDDM/Polyneuropathy (E11.42), Hammertoe Foot Deformity (M20.41,M20.42), Preulcerative Skin Lesion(s) (L85.1 11/30/2016 Not-Taking Irbesartan 300 MG TAKE 1 TABLET BY TATYANA TH EVERY DAY Oral for 90 Active azaTHIOprine 50 MG TAKE 1 TABLET BY TATYANA TH TWICE A DAY Oral for 90 Active amLODIPine Besylate 5 MG TAKE 1 TABLET D AILY Oral for 90 Active PEG-3350/Electrolytes 236 GM MIX WITH WATER AND DRINK 240 ML EVERY 15 MINUTES Oral for 1 Not-Taking Tamsulosin HCl 0.4 MG TAKE ONE CAPSULE B Y MOUTH EVERY DAY Oral for 90 Active Finasteride 5 MG TAKE 1 TABLET BY TATYANA TH ONCE A DAY Oral for 30 Not-Takin g Apriso 0.375 GM TAKE 4 CAPSULES BY M OUTH EVERY MORNING Oral for 90 Active metFORMIN HCl ER 750 MG TAKE 2 TABLETS B Y MOUTH EVERY DAY Oral for 90 Active Immunizations Vaccine Route Administration Date Status Comme nts Influenza Unknown 04/01/2016 Administered Influenza Unknown 03/04/2017 Administered Influenza Unknown 04/04/2018 Administered Influenza Unknown 03/30/2019 Administered Influenza Unknown 04/04/2020 Administered Influenza Unknown 03/13/2021 Administered Social History Tobacco Use: Social History Observation Description Date Details (start date - stop date) Never Smoker NA - NA Tobacco Use/Smoking Question Answer Notes Are you a: nonsmoker Additional Findings: Tobacco Non-User Current no n-smoker Alcohol Screen Question Answer Notes Did you have a drink containing alcohol in the p ast year? No Points 0 Interpretation Negative Tobacco use other than smoking: Question Answer Notes Are you an other tobacco user? No Problems Problem Type SNOMED Code ICD Code Onset Dates Problem Status W/U Status Risk Notes Problem Ulcer of toe (982515101) Non-pressure chronic ulcer of other part of right foot limited to breakdown of skin (L97.511) Active confirmed Problem Ulcer of toe (947553248) Non-pressure chronic ulcer of other part of left foot limited to breakdown of skin (L97.521) Active confirmed Problem Acquired hammer toe of right foot (7687278106354863 ) Other hammer toe(s) (acquired), right foot (M20.41) Active confirmed Problem Polyneuropathy due to type 2 diabetes mellitus (892329419) Type 2 diabetes mellitus with diabetic polyneuropathy (E11.42) Active confirmed Problem 143847233 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) Active confirmed Plan Of Treatment Pending Test Test Name Order Date 62738-OVCLRMY NAIL, 6 OR MORE 11/30/2016 60015-KCRIKGU NAIL, 6 OR MORE 04/05/2017 82190-MBCSYUH NAIL, 6 OR MORE 07/05/2017 14996-KHXLJGM NAIL, 6 OR MORE 10/07/2017 20684-HEYLNNL NAIL, 6 OR MORE 02/08/2018 04269-GZAZDMI NAIL, 6 OR MORE 05/10/2018 04005-IHHBTMM NAIL, 6 OR MORE 08/04/2018 39766-FXGLRKE NAIL, 6 OR MORE 11/03/2018 23273-FEFYPNH NAIL, 6 OR MORE 02/02/2019 66880-YOYNCRD NAIL, 6 OR MORE 11/14/2019 06857-DTCZANU NAIL, 6 OR MORE 02/13/2020 75946-DCUNXSK NAIL, 6 OR MORE 05/16/2020 96987-MENVGDX NAIL, 6 OR MORE 08/19/2020 50910-VDJLDYV NAIL, 6 OR MORE 11/14/2020 26307-SQVFYXB NAIL, 6 OR MORE 02/13/2021 30430-WZMAQPN NAIL, 6 OR MORE 05/22/2021 61857-IQGIFWD NAIL, 6 OR MORE 09/01/2021 10648-Cobkswmk Plate 11/14/2020 64937-Arsdzorv Plate 09/01/2021 64492-Zlwkfktj Plate 02/13/2021 70374-Ppwhktnx Plate 05/16/2020 65840-Vlwxrlpm Plate 11/14/2019 61203-Plzpsjpg Plate 02/02/2019 07986-Zkppxyfh Plate Each Additional 04/2020 40150-Skflwmcm Plate Each Additional 03/2021 52722- Debride <25 sq cm 05/27/2020 42251-XWOC SKIN LESIONS, OVER 4 08/20/19 21 12031-OJQM SKIN LESIONS, OVER 4 05/16/20 20 93669-IDKX SKIN LESIONS, OVER 4 02/13/20 20 05881-MKIE SKIN LESIONS, OVER 4 11/14/19 20 00813-SHRU SKIN LESIONS, OVER 4 02/03/20 19 09188-LXBL SKIN LESIONS, OVER 4 11/04/19 19 93676-WKAZ SKIN LESIONS, OVER 4 03/01/20 19 74815-FROY SKIN LESIONS, OVER 4 05/10/20 18 33346-JZHD SKIN LESIONS, OVER 4 02/09/20 18 30186-GMAF SKIN LESIONS, OVER 4 10/08/19 18 53210-GQSU SKIN LESIONS, OVER 4 07/05/19 18 31277-WENX SKIN LESIONS, OVER 4 04/05/20 17 13192-PMAG SKIN LESIONS, OVER 4 12/01/19 17 29898-SIEE SKIN LESIONS, OVER 4 02/14/20 21 40908-AGTD SKIN LESIONS, OVER 4 05/22/20 21 41496-TBXV SKIN LESIONS, OVER 4 09/02/19 22 72238-SWZJ SKIN LESIONS, 2 TO 4 11/15/19 21 06267-Vppg. Subungual Hematoma 7 Insurance Providers Payer Name Payer Address Payer Phone Subscriber Number Group Number Insured Name Patient Relationship to Insured Coverage Start Date Coverage End Date [facility] [address] [place] [address] [phone] [id number] Madi Tapia Self - patient is the insured Medical (General) History Medical History History ICD Code Arthritis Back,Hip,and Knee pain type II diabetes High blood pressure Surgical History Surgery Date(Month/Year) cyst removal- left shoulder prostate surgery 09/2017 cyst removal- throat 12/2017 cataract removal 10/2020 Hospitalization History Reason Date(Month/Year) [facility] blood sugar elevated 06/2017 [facility] Cough 10/2019
== END 2024-08-23 14:37 | disposition home or self-care (01) ==
LOC: HO.ENCR 13:21
PROVIDERS: PCP Internal Medicine; Visit Provider Registered Nurse Diabetes Educator
DX: E11.65 Type 2 diabetes mellitus with hyperglycemia (principal)

== ENCOUNTER → 2024-08-23 13:20 | Outpatient (BNVA) | payer MEDICARE, SELFPAY | PROVIDERS: PCP Internal Medicine; Visit Provider Registered Nurse Diabetes Educator | DX: E11.65 Type 2 diabetes mellitus with hyperglycemia (principal) | CPT/HCPCS: 99211 ==

== ENCOUNTER 2025-02-26 12:13 | Outpatient (AMB) | payer MEDICARE, SELFPAY ==
--- NOTE | 2025-02-26 13:16 | A.OFFVIS_ITS ---
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 Required: No Accompanied by: Nephew or Niece Allergies HELENA Inhibitors (HELENA INHIBITORS) Allergy (Unknown, Verified 04/07/23 10:09) ANAPHYLAXIS ARB-Angiotensin Receptor Antagonist (ARB-ANGIOTENSIN RECEPTOR ANTAGONIST) Allergy (Unknown, Verified 04/07/23 10:09) ANAPHYLAXIS HPI Comprehensive Diabetes Asmnt Most Recent Diabetes Results: 2 Microalb/Creat Ratio 6.1 ug/mg cr 08/04/21 Cholesterol 125 mg/dL 08/04/21 HDL Cholesterol 43 mg/dL 08/04/21 Triglycerides 71 mg/dL 08/04/21 Creatinine, (0.5-1.4) 0.93 mg/dL 08/04/21 BUN, (9-16) 11 mg/dL 08/04/21 Sodium, (135-145) 141 mmol/L 08/04/21 Potassium, (3.3-5.1) 4.1 mmol/L 08/04/21 Chloride, (96-108) 103 mmol/L 08/04/21 Carbon Dioxide, (22-29) 31 mmol/L H 08/04/21 Calcium, (8.4-10.2) 9.8 mg/dL Δ 08/04/21 AST, (5-37) 31 U/L Δ 08/04/21 ALT, (0-40) 22 U/L 08/04/21 Total Protein, (6.5-8.0) 6.6 g/dL 08/04/21 Albumin, (3.5-5.0) 4.2 g/dL 08/04/21 [facility] Medical History (Updated 12/30/22 @ 11:45 by Raj Rick MD) Atherosclerotic cardiovascular disease PVC (premature ventricular contraction) Hyperlipidemia BPH (benign prostatic hyperplasia) GERD (gastroesophageal reflux disease) Ulcerative colitis Vitamin deficiency Dyslipidemia Essential hypertension Overweight (BMI 25.0-29.9) Diabetes type 2, uncontrolled Surgical History Hx of cataract surgery History of esophagogastroduodenoscopy (EGD) History of prostate surgery Hx of colonoscopy Family History Father Diabetes CVD (cardiovascular disease) Mother CVD (cardiovascular disease) Social History Household Members: Spouse and Family Alcohol intake: never Patient Tobacco Use Status: Never used Tobacco Assessment & Plan Assessment & Plan (1) Diabetes type 2, uncontrolled: Code(s): E11.65 - Type 2 diabetes mellitus with hyperglycemia Plan: Patient at visit for follow-up blood glucose check, and diabetes education Patient's PCP Dr. Nunez- [phone] Called patient's PCP office for last A1c. On 01/08/2025 patient's A1c 6.5% The only medication for diabetes on his chart was metformin 850 mg daily Patient denies taking this medication Patient reports blood sugars below: Plan/Goal: Overall patient's diabetes is well controlled. 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 Patient needs to make eye appointment he was given list of eye doctors in the [place] area. Patient also reports he needs to see a dentist, patient's nephew offered to call his dentist's office to make appointment. In addition I gave patient's nephew the number for [place] [facility], patient needs support at home for cooking and cleaning Patient will follow-up as needed Portions of this note were created using voice recognition software, please excuse any words or phrases that may have been misinterpreted. Coding Level of Care Code Est Pt Level 1 (86671) Diagnoses Diabetes type 2, uncontrolled E11.65
--- OUTSIDE RECORDS SUMMARY | 2025-02-26 15:07 | XMS_ITS | Encounter Summary ---
Author Organization [facility] Address [address] [place] [address] Care Team Providers Care Back Sizer Name Role Phone Starr Nunez MD Primary Care Provider Reason for Visit * Reason Onset Date Comments Fitting for DME 02/26/2025 Encounter Details Date Type Department Care Team ([facility] st Contact Info) Description 02/26/2025 Telephone Adult Medicine - [place] [address] [place] [phone] Starr Nunez MD [address] [place] [address] Social History Tobacco Use Types Packs/Day Years Used Date Smoking Tobacco: Never Smokeless Tobacco: Never Alcohol Use Standard Drinks/Week Comments No 0 (1 standard drink = 0.6 oz pur e alcohol) Housing Instability Answer Date Recorde d Are you worried that in the next 2 months you may not have stable housing? No 12/19/2024 Food Access & Nutrition Answer Date Rec orded Do you have access to a vari ety of food including fruits and vegetables? Yes 12/19/2024 Access to Healthcare Answer Date Record ed Within the last 3 months, ho w many times did you visit the emergency department for your medical care? 1 12/19/2024 Health Literacy Answer Date Recorded How often do you need to hav e someone help you when you read instructions, pamphlets, or other written material from your doctor or pharmacy? Sometimes 12/19/2024 Caregiver: How often do you need to have someone help you when you read instructions, pamphlets, or other written material from your doctor or pharmacy? Not on file 12/19/2024 Financial Risk Answer Date Recorded How hard is it for you to pa y for the very basics like food, housing, medical care, and air conditioning / heating? Not very hard 12/19/2024 Transportation Answer Date Recorded Has the lack of transportati on kept you from meetings, work, or from getting things needed for daily living? Yes Has the lack of transportati on kept you from medical appointments or from getting medications? No 12/19/2024 Social Isolation Answer Date Recorded How often do you feel lonely or isolated from those around you? Sometimes 12/19/2024 Food Risk Answer Date Recorded Within the past 12 months we worried whether our food would run out before we got money to buy more. Never true 12/19/2024 Within the past 12 months th e food we bought just didn't last and we didn't have money to get more. Never true 12/19/2024 Dependent Care Answer Date Recorded Do you need help finding or paying for care for your loved ones. For example, children's service worker or elderly care for an older adult? No 12/19/2024 Education Answer Date Recorded Do you think completing more education or training, like finishing a GED, going to college, or learning a trade, would be helpful for you? No 12/19/2024 Employment and Income Answer Date Recor ded During the last four weeks, have you been actively looking for work? No 12/19/2024 Living Situation Answer Date Recorded What is your living situation? 0 12/19/2024 Sex and Gender Information Value Date Recorded Sex Assigned at Not on file Legal Sex Male 7:06 PM EST Gender Identity Not on file Sexual Orientation Not on file documented as of this encounter Progress Notes * Doris Villavicencio - 02/26/2025 12:45 PM EDT DME REQUEST Name of Product: Dme request Specific information about product One touch glucometer # Needed 1 Reason patient is asking for this supply? Old one doesn't work Have you received this supply before? If yes , when?: Yes. Have you discussed the need for this supply with a provider at a recent visit? If yes, with who andwhen? No When completed: Fax to other office/MD/pharmacy at fax # Sariah Who is requested? pt Is this a fax request? Have you told the patient it will take 7-10 days for completion of this request? Yes * Doris Villavicencio - 02/26/2025 12:42 PM EDT Rosita calling for the results of pts last A1c documented in this encounter Plan of Treatment Upcoming Encounters Date Type Department Care Team (Late st Contact Info) Description 05/10/2025 1:15 PM EST Office Visit Adult Medicine - [place] [address] [place] [phone] Kevin Dykes PA [address] [place] [address] documented as of this encounter Visit Diagnoses Not on filedocumented in this encounter Additional Health Concerns Assessment Noted Time PHQ-9 Depression Total Score: 0 12/20/19 25 12:15 PM EDT documented as of this encounter Care Teams Back Sizer Relationship Specialty Start Date End Date Starr Nunez MD [address] [address] PCP - General Internal Medicine 06/23/21 documented as of this encounter
--- OUTSIDE RECORDS SUMMARY | 2025-02-26 15:07 | XMS_ITS | Clinical Summary ---
Author Organization [facility] [address] [facility] lding Address [address] [place] [address] Phone Care Team Providers Care Welding Manager Name Role Phone Starr Nunez MD Primary Care Provider Allergies Active Allergy Reactions Criticality Noted Date Comments Rodney Inhibitors Anaphylaxis High 06/15/2021 Unknown Arb-Angiotensin Receptor Antagonist Swelling High 07/02/2019 Irbesartan 12/25/2021 Other reaction(s): angioedema Intubated 2017. Also on Sulfa at the time. both meds stoped Medications atorvastatin (LIPITOR) 80 mg tablet Take 1 Tablet by mouth daily. Active lisinopriL (PRINIVIL,ZESTRI L) 5 mg tablet Take 1 Tablet by mouth daily. 3 Active famotidine (PEPCID) 20 mg tablet TAKE 1 TABLET BY MOUTH TWICE DAILY 180 tablet 1 5 Active senna 8.6 mg tablet TAKE 2 TABLETS BY MOUTH DAILY 180 tablet 1 5 Active metFORMIN (GLUCOPHAGE) 850 mg tablet TAKE 1 TABLET BY MOUTH DAILY WITH BREAKFAST. 90 tablet 1 5 Active Additional Information Patient not taking.Reported on 12/19/2024 hydroCHLOROthiaz nghia 12.5 mg tablet TAKE 1 TABLET BY MOUTH ONCE DAILY 90 tablet 1 5 Active OneTouch Ultra Test test strip USE TO CHECK BLOOD SUGAR THREE TIMES DAILY DIRECTED. 300 strip 1 5 Active docusate sodium (COLACE) 100 mg capsuleIndicatio ns:Constipation, unspecified constipation type Take 1 capsule (100 mg total) by mouth 1 (one) time each day. 180 capsule 1 08/05/202 5 Active Active Problems Problem Noted Date Diagnosed Date Type II diabetes mellitus, w ell controlled ([facility] V24, [facility] V28) 09/04/2024 Mixed hyperlipidemia 09/04/2024 Carpal tunnel syndrome of right wrist 06/22/2022 Overview (03/08/2024): Last Assessment & Plan: Mr. Tapia reports waking up with numbness and pain of the right hand that he has to shake off and stretch his arm out. 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 On exam, there is some atrophy of [...] symptoms and possible carpal tunnel. Cervical myelopathy ([facility] V24, [facility] V28) 1 06/19/2021 Overview (03/08/2024): Last Assessment & Plan: Mr. [...] (diabetes mellitus), type 2 with neurological complications ([facility] V24, [facility] V28) 12/29/2020 Peripheral neuropathy 12/29/2020 Vitamin D deficiency [...] Cardiology. Per patient Type 2 diabetes mellitus wit h cataract ([facility], [facility] V28) 10/09/2018 Overview (03/08/2024): Last Assessment & Plan: Was following with tissue specialist in [place], he is on 10units lantus by vials and injections. Today he is willing to transfer his diabetes care to us. He is due for refill of Lantus. We discussed options of insulin pen/Solostar pen and he is interested to use this. Teaching with insulin pen by my staff- Kt/youth nutritional monitor is given regarding the technique. He is given information on this. Ulcerative colitis ([facility] V24, [facility] V28) Urinary frequency 10/09/2018 Overview (03/08/2024): Last Assessment [...] Encounters Date Type Department Care Team Description 02/26/2025 Telephone Adult [facility] [address] [place] [phone] Starr Nunez MD 01/09/2025 Telephone Adult [facility] [address] [place] [phone] Starr Nunez MD 01/08/2025 2:30 PM EDT Office Visit Adult Medicine [place] Byrd [address] [place] [phone] Starr Nunez MD Type II diabetes mellitus, well controlled ([facility] V24, [facility] V28) (Primary Dx); Primary hypertension; Mixed hyperlipidemia; Hearing deficit, bilateral; Constipation, unspecified constipation type; Gait abnormality; Lumbar spondylosis 12/19/2024 11:00 AM EDT Telemedicine Internal Medicine - [address] [phone] Encounter for subsequent annual wellness visit (AWV) in Medicare patient (Primary Dx) 12/19/2024 Telephone Adult Medicine [facility] [address] [place] [phone] Starr Nunez MD 12/19/2024 Telephone Internal Medicine - [address] [phone] Madeline Liriano RN 12/14/2024 Telephone Internal Medicine - [address] [phone] Sujata Kenney MA from Last 3 Months Immunizations Name Administration [...] History of angioedema 06/26/2019 DX:History of angioedema [place] (hard of hearing) 04/26/2019 DX:[place] ([place] of hearing) Hypercholesteremia 10/09/2018 DX:Hyperchole steremia Hypertension 10/09/2018 DX:Hypertension Internal hemorrhoids 09/06/2019 DX:Internal hemorrhoids Murmur 10/09/2018 DX:Murmur; COMME NT: Cardiology. Per patient Tubular adenoma 09/06/2019 DX:Tubular adeno ma; COMMENT: CN 01/17/19 repeat 2 years Diabetes mellitus type 2, uncomplicated ([facility], [facility] V28) 10/09/2018 DX:Diabetes mellitus type 2, uncomplicated (HCC) Ulcerative colitis with comp lication ([facility] V24, [facility] V28) 10/09/2018 DX:Ulcerative colitis with complication (HCC) Urinary frequency 10/09/2018 DX:Urinary marcus quency COVID-19 virus infection 09/28/2019 DX:COVI D-19 virus infection Type 2 diabetes mellitus wit h cataract ([facility] V24, [facility] V28) 10/09/2018 DX:Type 2 diabetes mellitus with cataract (HCC) BPH (benign prostatic hyperplasia) 12/29/2020 DX:BPH (benign prostatic hyperplasia) Vitamin D deficiency 12/29/2020 DX:Vitamin D deficiency DM (diabetes mellitus), type 2 with neurological complications ([facility] V24, [facility] V28) 12/29/2020 DX:DM (diabetes mellitus), t ype 2 with neurological complications (HCC) Peripheral neuropathy [...] Date Smoking Tobacco: Never Smokeless Tobacco: Never Tobacco Cessation:Counseling Given: Not Answered Alcohol Use Standard Drinks/Week Comments No 0 [...] care for your loved ones. For example, home child care provider or elderly care for an older adult? [...] Sign Reading Time Taken Comments Blood Pressure 128/55 01/08/2025 2:08 PM EDT Pulse 69 01/08/2025 2:08 PM EDT Temperature 36.2 C (97.1 F) 01/08/2025 2:08 PM EDT Respiratory Rate 16 01/08/2025 2:08 PM EDT Oxygen Saturation - - Inhaled Oxygen Concentration - - Weight 62.4 kg (137 lb 9.6 oz) 01/08/2025 2:08 P M EDT Height 166 cm (5' 5.35 ) 01/08/2025 2:08 PM EDT Body Mass Index 22.65 01/08/2025 2:08 PM EDT Plan of Treatment Upcoming Encounters Date Type Department Care Team (Late st Contact Info) Description 05/10/2025 1:15 PM EST Office Visit Adult Medicine - [place] [address] [place] [phone] Kevin Dykes, PA [address] [place] [address] Health Maintenance Due Date Last Done Comments Diabetes: Annual Retina Eye Exam 1955 Zoster Vaccines (1 of 2) 1962 Pneumococcal Vaccine: 50+ Years (2 of 2 - PCV) 08/05/2015 08/04/2014 RSV Immunization Adult Patients (1 - 1-dose 75+ series) 2018 Colorectal Cancer Screening: Colonoscopy 06/11/2022 06/11/2020 DTaP,Tdap,and Td Vaccines (2 - Td or Tdap) 08/04/2022 08/04/2012 COVID-19 Vaccine ( season) 2025 06/08/2021, 09/23/2020, 08/26/2020 Influenza Vaccine (#1) 2025 , 05/25/2021, 02/15/2020, Additional history exists Diabetes: Blood Sugar Control Test (HGBA1C) 07/11/2025 01/08/2025, 08/10/2024, 08/05/2023 Diabetes: Annual Foot Exam 12/05/2025 12/05/2024, Falls Risk Assessment 12/19/2025 12/19/2024 Medicare Annual Wellness Visit 12/19/2025 12/19/2024 Social Influencers of Health Screening 12/19/2025 12/19/2024 Diabetes: Annual GFR (Glomerular Filtration Rate) 01/08/2026 01/08/2025, 08/10/2024, 08/05/2023 Hypertension/CHF/CAD Annual BMP Blood Test 01/08/2026 01/08/2025, 08/10/2024, 08/05/2023 Diabetes: Annual Urine Albumin-Creatinine Ratio (uACR) 01/09/2026 01/09/2025, 08/05/2023 Cholesterol Screening (Lipid Panel) 01/08/2030 01/08/2025, 08/05/2023 Depression Screening Completed 12/19/2024 HIB Vaccines Aged Out No longer eligi [...] age to complete this topic Meningococcal B Vaccine Aged Out No l onger eligible based on patient's age to complete this topic RSV Immunization Patients Under 20 months Aged Out No longer eligible based on patient's age to complete this topic Varicella Vaccines Aged Out No longer eligible based on patient's age to complete this topic Procedures Procedure Name Priority Date/Time Associated Diagnosis Comments MICROALBUMIN CREATININE URINE RATIO Routine 01/09/2025 12:37 PM EDT Type II diabetes mellitus, well controlled ([facility] V24, [facility] V28) Primary hypertension Mixed hyperlipidemia Hearing deficit, bilateral LIPID PANEL WITH REFLEX TO DIRECT LDL Routine 01/08/2025 3:04 PM EDT Type II diabetes mellitus, well controlled ([facility] V24, [facility] V28) Primary hypertension Mixed hyperlipidemia Hearing deficit, bilateral HEMOGLOBIN A1C Routine 01/08/2025 3:04 PM EDT Type II diabetes mellitus, well controlled ([facility] V24, [facility] V28) Primary hypertension Mixed hyperlipidemia Hearing deficit, bilateral COMPREHENSIVE METABOLIC PANEL Routine 01/08/2025 3:04 PM EDT Type II diabetes mellitus, well controlled ([facility] V24, [facility] V28) Primary hypertension Mixed hyperlipidemia Hearing deficit, bilateral DIABETES FOOT EXAM Routine 03/22/2023 COLONOSCOPY Routine 06/11/2020 from Last 3 Months or Most Recently Relevant to Health Maintenance Results * Microalbumin creatinine urine ratio (01/09/2025 12:37 PM EDT) Creatinine, Urine 180.0 mg/dL LAB CHEMISTRY METHOD 01/09/2025 3:47 PM EDT [facility] Microalb, Ur 9.8 0.0 - 29.0 mg/L LAB CHEMISTRY METHOD 01/09/2025 3:47 PM EDT [facility] Microalb/Creat Ratio 5 <30 mg/g creat LAB CHEMISTRY METHOD 01/09/2025 3:47 PM EDT [facility] Urine Urine specimen obtained by clean catch procedure / Unknown Non-blood Collection / Unknown 01/09/2025 12:37 PM EDT 01/09/2025 12:37 PM EDT us Starr Nunez MD LAB URINE ORDERABLES F inal Result Performing Organization Address City/[facility]/ZIP Co de Phone Number [facility] [address] [place] [address], [place] [phone] * Lipid panel with reflex to direct LDL (01/08/2025 3:04 PM EDT) Cholesterol 101 0 - 200 mg/dL LAB CHEMISTRY METHOD 01/08/2025 5:56 PM EDT [facility] Triglycerides 46 0 - 150 mg/dL LAB CHEMISTRY METHOD 01/08/2025 5:56 PM EDT [facility] HDL 64 >=40 mg/dL LAB CHEMISTRY METHOD 01/08/2025 5:56 PM EDT [facility] LDL Calculated 28 0 - 100 mg/dL LAB CHEMISTRY METHOD 01/08/2025 5:56 PM EDT [facility] Comment:Estimated LDL Calcul ated using equation: Total cholesterol - HDL cholesterol - (Triglycerides/5) VLDL Cholesterol Derek 9.2 mg/dL LAB CHEMISTRY METHOD 01/08/2025 5:56 PM EDT [facility] Non HDL Chol. (LDL+VLDL) 37 <145 mg/dL LAB CHEMISTRY METHOD 01/08/2025 5:56 PM EDT [facility] Chol/HDL Ratio 1.6 0.0 - 4.4 LAB CHEMISTRY METHOD 01/08/2025 5:56 PM EDT [facility] Blood Venous blood specimen / Unknown Venipuncture / Unknown 01/08/2025 3:04 PM EDT 01/08/2025 3:04 PM EDT Starr Nunez MD LAB BLOOD ORDERABLES F inal Result Performing Organization Address City/[facility]/ZIP Co de Phone Number [facility] [address] [place] [address], [place] [phone] * (ABNORMAL) Hemoglobin A1c (01/08/2025 3:04 PM EDT) Pathologist [facility] Hemoglobin A1C 6.5(H) <6.5 % LAB CHEMISTRY METHOD 01/08/2025 9:29 PM EDT [facility] Mean Bld Glu Estim. 140 mg/dL LAB CHEMISTRY METHOD 01/08/2025 9:29 PM EDT [facility] Blood Venous blood specimen / Unknown Venipuncture / Unknown 01/08/2025 3:04 PM EDT 01/08/2025 3:04 PM EDT Starr Nunez MD LAB BLOOD ORDERABLES F inal Result [facility] [address] [place] [address], * (ABNORMAL) Comprehensive metabolic panel (01/08/2025 3:04 PM EDT) [facility] Sodium 137 133 - 145 mmol/L LAB CHEMISTRY METHOD 01/08/2025 5:49 PM [facility] Potassium 3.6 3.5 - 5.5 mmol/L LAB CHEMISTRY METHOD 01/08/2025 5:49 PM [facility] Chloride 104 96 - 110 mmol/L LAB CHEMISTRY METHOD 01/08/2025 5:49 PM [facility] CO2 30 21 - 32 mmol/L LAB CHEMISTRY METHOD 01/08/2025 5:49 PM T [facility] Anion Gap 3 3 - 11 LAB CHEMISTRY METHOD 01/08/2025 5:49 PM [facility] Glucose 140(H) 70 - 100 mg/dL LAB CHEMISTRY METHOD 01/08/2025 5:49 PM [facility] BUN 18 5 - 25 mg/dL LAB CHEMISTRY METHOD 01/08/2025 5:49 PM [facility] Creatinine 0.91 0.70 - 1.30 mg/dL LAB CHEMISTRY METHOD 01/08/2025 5:49 PM T [facility] eGFR 85 >=60 mL/min/1. 73m2 LAB CHEMISTRY METHOD 01/08/2025 5:49 PM [facility] Comment:Calculation based on the Chronic Kidney Disease Epidemiology Collaboration (CKD-EPI) equation refit without adjustment for race. BUN/Creatinine Ratio 19.8 LAB CHEMISTRY METHOD 01/08/2025 5:49 PM EDT [facility] Calcium 8.8 8.5 - 10.5 mg/dL LAB CHEMISTRY METHOD 01/08/2025 5:49 PM [facility] AST (SGOT) 26 10 - 42 unit/L LAB CHEMISTRY METHOD 01/08/2025 5:49 PM [facility] ALT (SGPT) 32 10 - 60 unit/L LAB CHEMISTRY METHOD 01/08/2025 5:49 PM [facility] Alkaline Phosphatase 48 42 - 121 unit/L LAB CHEMISTRY METHOD 01/08/2025 5:49 PM [facility] Total Protein 6.3 6.0 - 8.0 g/dL LAB CHEMISTRY METHOD 01/08/2025 5:49 PM [facility] Albumin 3.9 3.2 - 5.0 g/dL LAB CHEMISTRY METHOD 01/08/2025 5:49 PM [facility] Total Bilirubin 0.7 0.0 - 1.4 mg/dL LAB CHEMISTRY METHOD 01/08/2025 5:49 PM [facility] Blood Venous blood specimen / Unknown Venipuncture / Unknown 01/08/2025 3:04 PM EDT 01/08/2025 3:04 PM EDT us Starr Nunez MD LAB BLOOD ORDERABLES F inal Result [facility] [address] [place] [address], * Diabetes Foot Exam (03/22/2023) Diabetes: Annual Foot Exam Abstracted Historical Provider HEALTH MAINTENANCE Final Result * Colonoscopy (06/11/2020) Colonoscopy No Interpretation , Abstracted Anatomical Region Laterality Modality Other Historical Provider HEALTH MAINTENANCE Final Result from Last 3 Months or Most Recently Relevant to Health Maintenance Insurance [employer] MEDICARE ADVANTAGE MEDICAID - [place] Care Teams Welding Manager Relationship Specialty Start Date End Date Starr Nunez MD [address] [place] [phone] PCP - General Internal Medicine 06/23/21
--- OUTSIDE RECORDS SUMMARY | 2025-02-26 15:07 | XMS_ITS | Patient Health Record ---
Author Organization [facility] Address [address] [place] [address] Care Team Providers Care Web Methods Developer Name Role Phone Annalee Swenson Primary Care Provider Unavailable Black, Keli Unavailable [phone] Allergies No Known Allergies Reason For Referral No Information Medications Medication SIG (Take, Route, Frequency, Duration) Notes Start Date End Date Status Omeprazole 20 MG TAKE ONE CAPSULE BY MOUTH EVERY DAY Oral; Duration: 30 Active zzzCompression Stockings 20-30mm Hg . . .; Duration: . Active OneTouch Ultra Test - USE TWICE A DAY In Vitro; Duration: 50 Active zzzCompression Stockings 20-30mm Hg . . .; Duration: . Not-Takin g Lantus 100 UNIT/ML INJECT 10 UNITS SUBCUTANEOUSLY AT BEDTIME. Subcutaneous; Duration: 28 Active zzzCompression Stockings 20-30mm Hg . . .; Duration: . Not-Takin g glipiZIDE 5 MG TAKE 2 TABS BEFORE BREAKFAST AND BEFORE SUPPER Oral; Duration: 45 Active Extra Depth Orthopedic Shoes (1 Pair) with Customized Heat Molded Multidensity Innersoles (3 Pair) as directed Dx: NIDDM/Polyneuropathy (E11.42), Hammertoe Foot Deformity (M20.41,M20.42), Preulcerative Skin Lesion(s) (L85.1 08/04/2018 Not-Taking Simvastatin 20 MG TAKE 1 TABLET BY TATYANA TH AT BEDTIME Oral; Duration: 90 Active Extra Depth Orthopedic Shoes (1 Pair) with Customized Heat Molded Multidensity Innersoles (3 Pair) as directed Dx: NIDDM/Polyneuropathy (E11.42), Hammertoe Foot Deformity (M20.41,M20.42), Preulcerative Skin Lesion(s) (L85.1 11/30/2016 Not-Taking Irbesartan 300 MG TAKE 1 TABLET BY TATYANA TH EVERY DAY Oral; Duration: 90 Active azaTHIOprine 50 MG TAKE 1 TABLET BY TATYANA TH TWICE A DAY Oral; Duration: 90 Active amLODIPine Besylate 5 MG TAKE 1 TABLET D AILY Oral; Duration: 90 Active PEG-3350/Electrolytes 236 GM MIX WITH WATER AND DRINK 240 ML EVERY 15 MINUTES Oral; Duration: 1 Not-Taking Tamsulosin HCl 0.4 MG TAKE ONE CAPSULE B Y MOUTH EVERY DAY Oral; Duration: 90 Active Finasteride 5 MG TAKE 1 TABLET BY TATYANA TH ONCE A DAY Oral; Duration: 30 Not-Taking Apriso 0.375 GM TAKE 4 CAPSULES BY M OUTH EVERY MORNING Oral; Duration: 90 Active metFORMIN HCl ER 750 MG TAKE 2 TABLETS B Y MOUTH EVERY DAY Oral; Duration: 90 Active Immunizations Vaccine Route Administration Date [...] Problem Status W/U Status Risk Notes Problem Non-pressure chronic ulcer of other part of right foot limited to breakdown of skin (L97.511) Active confirmed Problem Non-pressure chronic ulcer of other part of left foot limited to breakdown of skin (L97.521) Active confirmed Problem Acquired hammer toe of right foot (1415347877743092 ) Other hammer toe(s) (acquired), right foot (M20.41) Active confirmed Problem Polyneuropathy due to type 2 diabetes mellitus (633552609) Type 2 diabetes mellitus with diabetic polyneuropathy (E11.42) Active confirmed Problem Acquired hallux valgus (37927588) 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) Active confirmed Plan Of Treatment Pending Test Test Name Order Date 77308-VMEHNNE NAIL, 6 OR MORE 11/30/2016 75567-UWOJRFJ NAIL, 6 OR MORE 04/05/2017 26361-AXVBTXZ NAIL, 6 OR MORE 07/05/2017 21697-YOZPGVQ NAIL, 6 OR MORE 10/07/2017 78699-WARYKRN NAIL, 6 OR MORE 02/08/2018 09658-KRJGQIF NAIL, 6 OR MORE 05/10/2018 94744-NQFVWCT NAIL, 6 OR MORE 08/04/2018 93821-TYOEBMY NAIL, 6 OR MORE 11/03/2018 33505-JOMLRBZ NAIL, 6 OR MORE 02/02/2019 24247-UZMPGXP NAIL, 6 OR MORE 11/14/2019 90230-OZINOII NAIL, 6 OR MORE 02/13/2020 32861-WEIQTUZ NAIL, 6 OR MORE 05/16/2020 08994-QXNBMPJ NAIL, 6 OR MORE 08/19/2020 79740-JGLCLUG NAIL, 6 OR MORE 11/14/2020 50100-AYUVXII NAIL, 6 OR MORE 02/13/2021 86040-FZSJDAN NAIL, 6 OR MORE 05/22/2021 14153-BYHGUMS NAIL, 6 OR MORE 09/01/2021 89818-Alcojvkf Plate 11/14/2020 02045-Lmfibqnq Plate 09/01/2021 07533-Xenhyctk Plate 02/13/2021 10260-Wvunylei Plate 05/16/2020 91559-Atuqxyul Plate 11/14/2019 50874-Xayzrbuh Plate 02/02/2019 56849-Ucfolpvc Plate Each Additional 04/2020 24944-Tgukakot Plate Each Additional 03/2021 58189- Debride <25 sq cm 05/27/2020 15649-FZQR SKIN LESIONS, OVER 4 08/20/19 21 67719-ZGKN SKIN LESIONS, OVER 4 05/16/20 20 24398-TLCI SKIN LESIONS, OVER 4 02/13/20 20 67906-WVNJ SKIN LESIONS, OVER 4 11/14/19 20 63225-ZDXE SKIN LESIONS, OVER 4 02/03/20 19 05762-VZWW SKIN LESIONS, OVER 4 11/04/19 19 49588-ANNM SKIN LESIONS, OVER 4 08/05/19 19 61355-KEBG SKIN LESIONS, OVER 4 05/10/20 18 88056-VFGX SKIN LESIONS, OVER 4 02/09/20 18 24190-GHZU SKIN LESIONS, OVER 4 10/08/19 18 15092-TMIZ SKIN LESIONS, OVER 4 07/05/19 18 45797-HMYJ SKIN LESIONS, OVER 4 04/05/20 17 31118-KVTF SKIN LESIONS, OVER 4 12/01/19 17 81534-YRJD SKIN LESIONS, OVER 4 02/14/20 21 79293-KCRZ SKIN LESIONS, OVER 4 05/22/20 21 52690-URDB SKIN LESIONS, OVER 4 09/02/19 22 55161-OICC SKIN LESIONS, 2 TO 4 11/15/19 21 15202-Qura. Subungual Hematoma 7 Insurance Providers Payer Name Payer Address Payer Phone Subscriber Number Group Number Insured Name Patient Relationship to Insured Coverage Start Date Coverage End Date [facility] [address] [place] [address] [id number] Madi Tapia Self - patient is the insured Medical (General) History Medical History History ICD Code Arthritis Back,Hip,and Knee pain type II diabetes High blood pressure Surgical History Surgery Date(Month/Year) cyst removal- left shoulder prostate surgery 09/2017 cyst removal- throat 12/2017 cataract removal 10/2020 Hospitalization History Reason Date(Month/Year) [facility] blood sugar elevated 06/2017 [facility] Cough 10/2019
== END 2025-02-26 13:21 | disposition home or self-care (01) ==
LOC: HO.ENCR 12:13
PROVIDERS: PCP Internal Medicine; Visit Provider Registered Nurse Diabetes Educator
DX: E11.65 Type 2 diabetes mellitus with hyperglycemia (principal)

== ENCOUNTER → 2025-02-26 12:13 | Outpatient (BNVA) | payer MEDICARE, SELFPAY | PROVIDERS: PCP Internal Medicine; Visit Provider Registered Nurse Diabetes Educator | DX: E11.65 Type 2 diabetes mellitus with hyperglycemia (principal) | CPT/HCPCS: 99211 ==

== ENCOUNTER 2025-03-04 14:23 | Outpatient (AMB) | payer MEDICARE, SELFPAY ==
[2025-03-04 14:37] VITALS: BP 100/52; PULSE 56; BMI 20.4
--- NOTE | 2025-03-04 14:37 | MHC.OFFVIS ---
Vital Signs 03/04/25 14:37 Height 5 ft 8 in Weight 134 lb 7.712 oz BMI 20.4 BP 100/52 L Blood Pressure Location Lt brachial Position Sitting Pulse 56 Pulse Source Monitor Intake Visit Reasons: 1 year f/up dr adames pt Account Management Assistant Required: No Infection Preventionist: Infection Preventionist Present Allergies RODNEY Inhibitors (RODNEY INHIBITORS) Allergy (Unknown, Verified 03/04/25 14:42) ANAPHYLAXIS ARB-Angiotensin Receptor Antagonist (ARB-ANGIOTENSIN RECEPTOR ANTAGONIST) Allergy (Unknown, Verified 03/04/25 14:42) ANAPHYLAXIS Medication List - Last Reconciled 03/04/25 by Lea Tariq NP-C aspirin 81 mg PO DAILY atorvastatin 80 mg PO DAILY blood sugar diagnostic ([employer] Ultra Test strips) 1 strip miscellaneous TID 30 days docusate sodium 100 mg PO BID famotidine 20 mg PO BID hydrochlorothiazide 12.5 mg PO DAILY insulin glargine (Lantus U-100 Insulin) 9 units subcut insulin syringe-needle U-100 (BD Veo Insulin Syringe Ultra-Fine) As directed metformin 850 mg PO DAILY sennosides 17.2 mg PO DAILY PRN tamsulosin 0.8 mg PO DAILY HPI HPI 1 year f/up dr adames pt: Details: Madi is an 79-year-old male past medical history of hypertension, hyperlipidemia, diabetes, coronary artery disease, asymmetric septal hypertrophy, takotsubo cardiomyopathy 2022 who presents for follow-up. His last prior visit was 10/13/2023. Today he reports he has done generally well since his last visit. He does have shortness of breath when climbing stairs. He is not sure if this is a new symptom or not. He has no chest discomfort at rest or during activity. No lightheadedness, presyncope, syncope, falls. He admits to being mostly sedentary and ambulates with a cane. He is not sure of what medications he takes. He manages his medicines on his own. Family members present. [facility] Medical History Atherosclerotic cardiovascular disease PVC (premature ventricular contraction) Hyperlipidemia BPH (benign prostatic hyperplasia) GERD (gastroesophageal reflux disease) Ulcerative colitis Vitamin deficiency Dyslipidemia Essential hypertension Overweight (BMI 25.0-29.9) Diabetes type 2, uncontrolled Surgical History Hx of cataract surgery History of esophagogastroduodenoscopy (EGD) History of prostate surgery Hx of colonoscopy Family History Father Diabetes CVD (cardiovascular disease) Mother CVD (cardiovascular disease) Social History Household Members: Spouse and Family Alcohol intake: never Patient Tobacco Use Status: Never used Tobacco Review of Systems Const All systems reviewed & are unremarkable except as noted in HPI and below ENT Denies dizziness Card Denies chest pain, Denies chest pain at rest, Denies chest pain with activity, Denies rapid heart rate, Denies pedal edema, Denies edema, Denies leg edema, Denies lightheadedness, Denies palpitations, Denies dyspnea, Reports dyspnea on exertion and Denies orthopnea Resp Denies cough, Denies dyspnea and Reports dyspnea on exertion GI Denies hematochezia and Denies change in stool character Musc Denies abnormal gait, Denies limited range of motion, Denies muscle cramps, Denies muscle weakness, Denies numbness, Denies radiating pain into limb, Denies stiffness and Denies tingling Neuro Denies abnormal gait, Denies dizziness, Denies numbness and Denies tingling Endo Denies palpitations Physical Exam Vital Signs: Last Vital Signs Pulse 56 03/04/25 14:37 BP 100/52 L 03/04/25 14:37 BMI result Body Mass Index 20.4 Const General: cooperative, healthy appearing, comfortable and no acute distress Orientation/consciousness: patient oriented x3 Neck Neck: Yes normal visual inspection and Yes no JVD Resp Effort & Inspection: normal respiratory effort Auscultation: clear to auscultation bilaterally, no crackles, no rales, no rhonchi and no wheezes Cardio Rate: regular rate Rhythm: regular rhythm Heart sounds: S1 normal heart sound present, S2 normal heart sound present, no gallops, no murmurs and no rubs Neuro General: patient oriented x3 Extrem General: Yes normal to inspection, No no pedal edema and No calf tenderness Psych Appearance: grossly normal Mental Status: mental status grossly normal Speech and movement: Normal speech and movement present Office Procedures EKG Details: Today, read by me, sinus bradycardia, first-degree AV block, left axis, right bundle branch block, QTC 455 milliseconds, rate 56. 44272-Khzkcfahbknfxrfow, Complete Assessment & Plan Assessment & Plan (1) Cardiomyopathy: Code(s): I42.9 - Cardiomyopathy, unspecified Category: Medical Plan: Takotsubo cardiomyopathy 10/2022. Echocardiogram had shown EF 20-25%. He underwent cardiac catheterization showing nonobstructive disease. His managed medically and repeat echocardiogram showed normalization of EF. He was maintained on lisinopril and metoprolol however he is off both of these medications at this time. Meds clarified with pharmacy. Has Rodney/Arb listed as allergy. His EKG today showing sinus bradycardia with first-degree AV block and right bundle branch block, rate 56. Will avoid restart of these medications. He is not fluid overloaded on examination today. Will update echo prior to his next visit. Cardiology follow-up 6 months. (2) Asymmetric septal hypertrophy: Code(s): I42.2 - Other hypertrophic cardiomyopathy Category: Medical Plan: Echocardiogram 02/15/2023 showed EF 59%, severe septal and severe basal asymmetric hypertrophy. Will update echo prior to next visit. (3) Atherosclerotic cardiovascular disease: Comment: Cardiac catheterization 10/17/2022 left main minimal luminal irregularities, lad and left circumflex mild diffuse disease, less than 30% stenosis, RCA moderate diffuse disease, mid RCA proximal subsection 50% stenosis. Code(s): I25.10 - Atherosclerotic heart disease of [place] coronary artery without angina pectoris Category: Medical Plan: Nonobstructive coronary artery disease. EKG today shows no signs of ischemia. He denies anginal symptoms. Continue aspirin and high-dose atorvastatin with ideal LDL goal less than 70. Signs and symptoms of angina reviewed with him. (4) Essential hypertension: Code(s): I10 - Essential (primary) hypertension Category: Medical Plan: Blood pressure goal less than 130/80. Blood pressure on low side today at 100/52. He is on low-dose hydrochlorothiazide. Reviewed need for good hydration. (5) Hyperlipidemia: Code(s): E78.5 - Hyperlipidemia, unspecified Category: Medical Plan: LDL goal less than 70. No recent lipid profile in our system. Labs followed by PCP. Will forward this note to PCP. Continue atorvastatin Plan Time spent on chart review, documentation, interviewing, assessment Orders: Orders CA echo transthoracic complete 5 Months I42.2 - Other hypertrophic cardiomyopathy, I42.9 - Cardiomyopathy, unspecified Coding Level of Care Code Est Pt Level 4 (68397) Complex EM visit Add On G2211 Diagnoses Cardiomyopathy I42.9 Asymmetric septal hypertrophy I42.2 Atherosclerotic cardiovascular disease I25.10 Essential hypertension I10 Hyperlipidemia E78.5 CPT Codes EKG - CPT: 91667-Ruyufdenhuzwjqsxo, Complete ([id number]) Time Spent (min) 28
--- OUTSIDE RECORDS SUMMARY | 2025-03-04 16:14 | XMS_ITS | Encounter Summary ---
Author Organization [facility] Address [address] [place] [address] Care Team Providers Care Fraternity House Cook Name Role Phone Starr Nunez MD Primary Care Provider Reason for Visit * Reason Onset Date Comments Fitting for DME 02/26/2025 Encounter Details Date Type Department Care Team ([facility] st Contact Info) Description 02/26/2025 Telephone Adult Medicine - [place] [address] [place] [phone] Starr Nunez MD [address] [place] [address] Social History Tobacco Use Types Packs/Day Years [...] care for your loved ones. For example, early childhood education specialist or elderly care for an older adult? [...] Date Recorded What is your living situation? Unrecognized valu e 12/19/2024 Sex and Gender Information Value Date Recorded Sex Assigned at Not on file Legal Sex Male 7:06 PM EST Gender Identity Not on file Sexual Orientation Not on file documented as of this encounter Progress Notes * Petrona Sinclair MA - 03/01/2025 4:42 PM EDT Faxed to [facility]. F. [phone] T. [phone] * Starr Nunez MD - 03/01/2025 2:41 PM EDT Signed order. * Petrona Sinclair MA - 03/01/2025 1:36 PM EDT In your in basket. Thank you in advance * Doris Villavicencio - 02/26/2025 12:45 PM [...] PM EST Office Visit Adult Medicine - [place] [address] [place] [address] Kevin Dykes PA [address] [place] [address] documented as of this encounter Visit Diagnoses Diagnosis DM (diabetes mellitus), type 2 with neurological complications (CMS/HCC V24, CMS/HCC V28)- Primary Type II or unspecified type diabetes mellitus with neurological manifestations, not stated as uncontrolled documented in this encounter Orders General Supply Count Last Ordered Date First Or dered Date GENERAL SUPPLY 1 03/01/2025 documented in this encounter Additional Health Concerns Assessment Noted Time PHQ-9 Depression Total Score: 0 12/20/19 25 12:15 PM EDT documented as of this encounter Care Teams Fraternity House Cook Relationship Specialty Start Date End Date Starr Nunez MD [address] [place] [id number] PCP - General Internal Medicine 06/23/21 documented as of this encounter
--- OUTSIDE RECORDS SUMMARY | 2025-03-04 16:14 | XMS_ITS | Patient Health Record ---
Author Organization [facility] Address [address] [place] [address] Care Team Providers Care Insurance Verification Rep Name Role Phone Annalee Swenson Primary Care Provider Unavailable Black, Keli Unavailable [phone] Allergies No Known Allergies Reason For Referral [...] Problem Acquired hammer toe of right foot (0561558938038039 ) Other hammer toe(s) (acquired), right foot (M20.41) Active confirmed Problem Polyneuropathy due to type 2 diabetes mellitus (385788512) Type 2 diabetes mellitus with diabetic polyneuropathy (E11.42) Active confirmed Problem Acquired hallux valgus (15656440) 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) Active confirmed Plan Of Treatment Pending Test Test Name Order Date 06499-NKHNDTY NAIL, 6 OR MORE 11/30/2016 66061-FZFSDEK NAIL, 6 OR MORE 04/05/2017 90332-HRWIFWF NAIL, 6 OR MORE 07/05/2017 98946-ZUFDTUC NAIL, 6 OR MORE 10/07/2017 54088-ZNKSUUK NAIL, 6 OR MORE 02/08/2018 86429-UZBQWRA NAIL, 6 OR MORE 05/10/2018 18862-ZENEBOG NAIL, 6 OR MORE 08/04/2018 28288-NGQYVMB NAIL, 6 OR MORE 11/03/2018 48183-KHXQAYK NAIL, 6 OR MORE 02/02/2019 73603-ENUUXKI NAIL, 6 OR MORE 11/14/2019 62017-YOAMMUQ NAIL, 6 OR MORE 02/13/2020 78081-LKPSPXI NAIL, 6 OR MORE 05/16/2020 86601-DJVTKKA NAIL, 6 OR MORE 08/19/2020 30811-JSXZHBO NAIL, 6 OR MORE 11/14/2020 65592-PITONVC NAIL, 6 OR MORE 02/13/2021 92775-LFBDVXC NAIL, 6 OR MORE 05/22/2021 66633-RNEOPZZ NAIL, 6 OR MORE 09/01/2021 59898-Xqsbxbbd Plate 11/14/2020 25999-Qpeafvpi Plate 09/01/2021 76524-Kvjwguss Plate 02/13/2021 10719-Qtyxmtwu Plate 05/16/2020 27096-Njocsdvx Plate 11/14/2019 51907-Itukyxqw Plate 02/02/2019 25135-Yklplixf Plate Each Additional 04/2020 99780-Nwybhyiq Plate Each Additional 03/2021 20917- Debride <25 sq cm 05/27/2020 74493-BOUI SKIN LESIONS, OVER 4 08/20/19 21 70718-JGMS SKIN LESIONS, OVER 4 05/16/20 20 59167-BSOI SKIN LESIONS, OVER 4 02/13/20 20 77645-KCFY SKIN LESIONS, OVER 4 11/14/19 20 24904-XWEM SKIN LESIONS, OVER 4 02/03/20 19 79783-LCRR SKIN LESIONS, OVER 4 11/04/19 19 55246-WGZO SKIN LESIONS, OVER 4 08/05/19 19 26785-GJVT SKIN LESIONS, OVER 4 05/10/20 18 73695-IZUQ SKIN LESIONS, OVER 4 02/09/20 18 78522-SXTY SKIN LESIONS, OVER 4 10/08/19 18 45409-PFWG SKIN LESIONS, OVER 4 07/05/19 18 76780-PCUD SKIN LESIONS, OVER 4 04/05/20 17 61831-EWOJ SKIN LESIONS, OVER 4 12/01/19 17 56217-HXLA SKIN LESIONS, OVER 4 02/14/20 21 80428-HPGM SKIN LESIONS, OVER 4 05/22/20 21 91728-OPUL SKIN LESIONS, OVER 4 09/02/19 22 98995-YRPG SKIN LESIONS, 2 TO 4 11/15/19 21 24305-Tidi. Subungual Hematoma 7 Insurance Providers Payer Name Payer Address Payer Phone Subscriber Number Group Number Insured Name Patient Relationship to Insured Coverage Start Date Coverage End Date [facility] [address] [place] [address] [phone] [id number] Madi Tapia Self - patient is the insured Medical (General) History Medical History History ICD Code Arthritis Back,Hip,and Knee pain type II diabetes High blood pressure Surgical History Surgery Date(Month/Year) cyst removal- left shoulder prostate surgery 09/2017 cyst removal- throat 12/2017 cataract removal 10/2020 Hospitalization History Reason Date(Month/Year) [facility] blood sugar elevated 06/2017 [facility] Cough 10/2019
--- OUTSIDE RECORDS SUMMARY | 2025-03-04 16:14 | XMS_ITS | Encounter Summary ---
Author Organization [facility] Address [address] [place] [address] Care Team Providers Care Community Development Manager Name Role Phone Starr Nunez MD Primary Care Provider Encounter Details Date Type Department Care Team (Late st Contact Info) Description 03/04/2025 Telephone Adult Medicine - [place] [address] [place] [phone] Starr Nunez MD [address] [place] [address] Social History Tobacco Use Types Packs/Day Years [...] for your loved ones. For example, children's attendant or elderly care for an older adult? [...] on file documented as of this encounter Plan of Treatment Upcoming Encounters Date Type Department Care Team (Late st Contact Info) Description 05/10/2025 1:15 PM EST Office Visit Adult Medicine - [place] [address] [place] [address] Kevin Dykes PA [address] [place] [address] documented as of this encounter Visit Diagnoses Not on filedocumented in this encounter Additional Health Concerns Assessment Noted Time PHQ-9 Depression Total Score: 0 12/20/19 25 12:15 PM EDT documented as of this encounter Care Teams Community Development Manager Relationship Specialty Start Date End Date Starr Nunez MD [address] [place] [address] PCP - General Internal Medicine 06/23/21 documented as of this encounter
--- OUTSIDE RECORDS SUMMARY | 2025-03-04 16:14 | XMS_ITS | Clinical Summary ---
Author Organization [facility] [address] [facility] lding Address [address] [place] [address] Phone Care Team Providers Care Health Type Technician Name Role Phone Starr Nunez MD Primary [...] BY MOUTH TWICE DAILY 180 tablet 1 09/26/19 25 Active senna 8.6 mg tablet TAKE 2 TABLETS BY MOUTH DAILY 180 tablet 1 09/26/19 25 Active metFORMIN (GLUCOPHAGE) 850 mg tablet TAKE 1 TABLET BY MOUTH DAILY WITH BREAKFAST. 90 tablet 1 09/26/19 25 Active Additional Information Patient not taking.Reported on 12/19/2024 hydroCHLOROthiaz nghia 12.5 mg tablet TAKE 1 TABLET BY MOUTH ONCE DAILY 90 tablet 1 11/02/19 25 Active OneTouch Ultra Test test strip USE TO CHECK BLOOD SUGAR THREE TIMES DAILY DIRECTED. 300 strip 1 12/21/19 25 Active docusate sodium (COLACE) 100 mg capsuleIndicatio ns:Constipation, unspecified constipation type Take 1 capsule (100 mg total) by mouth 1 (one) time each day. 180 capsule 1 01/09/20 25 Active lisinopriL (PRINIVIL,ZESTRI L) 5 mg tablet Take 1 tablet (5 mg total) by mouth 1 (one) time each day. 90 tablet 1 02/29/20 25 Active lisinopriL (PRINIVIL,ZESTRI L) 5 mg tablet Take 1 Tablet by mouth daily. 11/24/19 23 025 Discontin ued(Reord er) Active Problems Problem Noted Date Diagnosed Date Type II diabetes mellitus, w ell controlled ([facility] V24, [facility] V28) 09/04/2024 Mixed hyperlipidemia 09/04/2024 Carpal tunnel syndrome of right wrist 06/22/2022 Overview (03/08/2024): Last Assessment & Plan: Mr. Tapia reports waking up with numbness and pain of the right hand that he has to shake off and stretch his arm out. He has trouble using his hands and feels that the right hand is weak with poor cloud engagement partner. On exam, there is some atrophy of [...] symptoms and possible carpal tunnel. Cervical myelopathy ([facility] V24, [facility] V28) 1 06/19/2021 Overview (03/08/2024): Last Assessment [...] (diabetes mellitus), type 2 with neurological complications ([facility] V24, [facility] V28) 12/29/2020 Peripheral neuropathy 12/29/2020 Vitamin D [...] Type 2 diabetes mellitus wit h cataract ([facility] V24, [facility] V28) 10/09/2018 Overview (03/08/2024): Last Assessment & Plan: 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 Today he is willing to transfer his diabetes care to us. He is due for refill of Lantus. We discussed options of insulin pen/Solostar pen and he is interested to use this. Teaching with insulin pen by my staff- Kt/room service manager is given regarding the technique. He is given information on this. Ulcerative colitis ([facility] V24, [facility] V28) Urinary frequency 10/09/2018 Overview (03/08/2024): Last [...] Encounters Date Type Department Care Team Description 03/04/2025 Telephone Adult Medicine - [place] [address] [place] [address] Starr Nunez MD 02/26/2025 Telephone Adult Medicine [facility] [address] [place] [address] Starr Nunez MD 01/09/2025 Telephone Adult [address] [phone] Starr Nunez MD 01/08/2025 2:30 PM EDT Office Visit Adult [address] [phone] Starr Nunez MD Type II diabetes mellitus, well controlled (CMS/HCC V24, CMS/HCC V28) (Primary Dx); Primary hypertension; Mixed hyperlipidemia; Hearing deficit, bilateral; Constipation, unspecified constipation type; Gait abnormality; Lumbar spondylosis 12/19/2024 11:00 AM EDT Telemedicine Internal Medicine - [address] [address] Encounter for subsequent annual wellness visit (AWV) in Medicare patient (Primary Dx) 12/19/2024 Telephone Adult [address] [address] Starr Nunez MD 12/19/2024 Telephone Internal Medicine [address] [phone] Madeline Liriano RN 12/14/2024 Telephone Internal Medicine [address] [phone] Sujata Kenney MA from Last 3 Months Immunizations Immunization Administration Dates Next Due Influenza trivalent, 0.5mL [...] History of angioedema 06/26/2019 DX:History of angioedema SNOQUALMIE (hard of hearing) 04/26/2019 DX:SNOQUALMIE (winter rd of hearing) Hypercholesteremia 10/09/2018 DX:Hyperchole steremia Hypertension 10/09/2018 DX:Hypertension Internal hemorrhoids 09/06/2019 DX:Internal hemorrhoids Murmur 10/09/2018 DX:Murmur; COMME NT: Cardiology. Per patient Tubular adenoma 09/06/2019 DX:Tubular adeno ma; COMMENT: CN 01/17/19 repeat 2 years Diabetes mellitus type 2, uncomplicated ([facility] V24, [facility] V28) 10/09/2018 DX:Diabetes mellitus type 2, uncomplicated (HCC) Ulcerative colitis with comp lication ([facility] V24, [facility] V28) 10/09/2018 DX:Ulcerative colitis with complication (HCC) Urinary frequency 10/09/2018 DX:Urinary marcus quency COVID-19 virus infection 09/28/2019 DX:COVI D-19 virus infection Type 2 diabetes mellitus wit h cataract ([facility] V24, [facility] V28) 10/09/2018 DX:Type 2 diabetes mellitus with cataract (HCC) BPH (benign prostatic hyperplasia) 12/29/2020 DX:BPH (benign prostatic hyperplasia) Vitamin D deficiency 12/29/2020 DX:Vitamin D deficiency DM (diabetes mellitus), type 2 with neurological complications ([facility] V24, [facility] V28) 12/29/2020 DX:DM (diabetes mellitus), t ype [...] for your loved ones. For example, children's ministries director or elderly care for an older adult? [...] PM EST Office Visit Adult Medicine - [place] [address] [place] [id number] Kevin Dykes PA [address] [place] [address] Health Maintenance Due Date Last Done Comments Diabetes: Annual Retina Eye Exam 1955 Zoster Vaccines (1 of 2) 1962 Pneumococcal Vaccine: 50+ Years (2 of 2 - PCV) 08/05/2015 08/04/2014 RSV Immunization Adult Patients (1 - 1-dose 75+ series) 2018 Colorectal Cancer Screening: Colonoscopy 06/11/2022 06/11/2020 DTaP,Tdap,and Td Vaccines (2 - Td or Tdap) 08/04/2022 08/04/2012 COVID-19 Vaccine ( - season) 2025 06/08/2021, 09/23/2020, 08/26/2020 Influenza Vaccine [...] EDT Type II diabetes mellitus, well controlled ([facility] V24, [facility] V28) Primary hypertension Mixed hyperlipidemia Hearing deficit, bilateral LIPID PANEL WITH REFLEX TO DIRECT LDL Routine 01/08/2025 3:04 PM EDT Type II diabetes mellitus, well controlled ([facility]/HCC V24, [facility] V28) Primary hypertension Mixed hyperlipidemia Hearing deficit, bilateral HEMOGLOBIN A1C Routine 01/08/2025 3:04 PM EDT Type II diabetes mellitus, well controlled (CMS/HCC V24, CMS/HCC V28) Primary hypertension Mixed hyperlipidemia Hearing deficit, bilateral COMPREHENSIVE METABOLIC PANEL Routine 01/08/2025 3:04 PM EDT Type II diabetes mellitus, well controlled (CMS/HCC V24, CMS/HCC V28) Primary hypertension Mixed hyperlipidemia Hearing deficit, bilateral DIABETES FOOT EXAM Routine 03/22/2023 COLONOSCOPY Routine 06/11/2020 from Last 3 Months or Most Recently Relevant to Health Maintenance Results * Microalbumin creatinine urine ratio (01/09/2025 12:37 PM EDT) Creatinine, Urine 180.0 mg/dL LAB CHEMISTRY METHOD 01/09/2025 3:47 PM EDT [facility] Microalb, Ur 9.8 0.0 - 29.0 mg/L LAB CHEMISTRY METHOD 01/09/2025 3:47 PM EDT [facility] Microalb/Creat Ratio 5 <30 mg/g creat LAB CHEMISTRY METHOD 01/09/2025 3:47 PM EDT [facility] Urine Urine specimen obtained by clean catch procedure / Unknown Non-blood Collection / Unknown 01/09/2025 12:37 PM EDT 01/09/2025 12:37 PM EDT us Starr Nunez MD LAB URINE ORDERABLES F inal Result [facility] [address] [place] [address], [place] [phone] * Lipid panel with reflex to direct LDL (01/08/2025 3:04 PM EDT) Cholesterol 101 0 - 200 mg/dL LAB CHEMISTRY METHOD 01/08/2025 5:56 PM [facility] Triglycerides 46 0 - 150 mg/dL LAB CHEMISTRY METHOD 01/08/2025 5:56 PM [facility] HDL 64 >=40 mg/dL LAB CHEMISTRY METHOD 01/08/2025 5:56 PM [facility] LDL Calculated 28 0 - 100 mg/dL LAB CHEMISTRY METHOD 01/08/2025 5:56 PM [facility] Comment:Estimated LDL Calcul ated using equation: Total cholesterol - HDL cholesterol - (Triglycerides/5) VLDL Cholesterol Derek 9.2 mg/dL LAB CHEMISTRY METHOD 01/08/2025 5:56 PM [facility] Non HDL Chol. (LDL+VLDL) 37 <145 mg/dL LAB CHEMISTRY METHOD 01/08/2025 5:56 PM [facility] Chol/HDL Ratio 1.6 0.0 - 4.4 LAB CHEMISTRY METHOD 01/08/2025 5:56 PM [facility] Blood Venous blood specimen / Unknown Venipuncture / Unknown 01/08/2025 3:04 PM EDT 01/08/2025 3:04 PM EDT us Starr Nunez MD LAB BLOOD ORDERABLES F inal Result Performing Organization Address [facility] Co de Phone Number [facility] [address] [place] [address], [place] [phone] * (ABNORMAL) Hemoglobin A1c (01/08/2025 3:04 PM EDT) [facility] Hemoglobin A1C 6.5(H) <6.5 % LAB CHEMISTRY METHOD 01/08/2025 9:29 PM EDT [facility] Mean Bld Glu Estim. 140 mg/dL LAB CHEMISTRY METHOD 01/08/2025 9:29 PM EDT [facility] Blood Venous blood specimen / Unknown Venipuncture / Unknown 01/08/2025 3:04 PM EDT 01/08/2025 3:04 PM EDT us Starr Nunez MD LAB BLOOD ORDERABLES F inal Result Performing Organization Address [facility]/ZIP Co de Phone Number [facility] [address] [place] [address], [place] [phone] * (ABNORMAL) Comprehensive metabolic panel (01/08/2025 3:04 PM EDT) [facility] Sodium 137 133 - 145 mmol/L LAB CHEMISTRY METHOD 01/08/2025 5:49 PM EDT [facility] Potassium 3.6 3.5 - 5.5 mmol/L LAB CHEMISTRY METHOD 01/08/2025 5:49 PM EDT [facility] Chloride 104 96 - 110 mmol/L LAB CHEMISTRY METHOD 01/08/2025 5:49 PM EDT [facility] CO2 30 21 - 32 mmol/L LAB CHEMISTRY METHOD 01/08/2025 5:49 PM EDT [facility] Anion Gap 3 3 - 11 LAB CHEMISTRY METHOD 01/08/2025 5:49 PM [facility] Glucose 140(H) 70 - 100 mg/dL LAB CHEMISTRY METHOD 01/08/2025 5:49 PM [facility] BUN 18 5 - 25 mg/dL LAB CHEMISTRY METHOD 01/08/2025 5:49 PM [facility] Creatinine 0.91 0.70 - 1.30 mg/dL LAB CHEMISTRY METHOD 01/08/2025 5:49 PM [facility] eGFR 85 >=60 mL/min/1. 73m2 LAB CHEMISTRY METHOD 01/08/2025 5:49 PM [facility] Comment:Calculation based on the Chronic Kidney Disease Epidemiology Collaboration (CKD-EPI) equation refit without adjustment for race. BUN/Creatinine Ratio 19.8 LAB CHEMISTRY METHOD 01/08/2025 5:49 PM [facility] Calcium 8.8 8.5 - 10.5 mg/dL LAB CHEMISTRY METHOD 01/08/2025 5:49 PM [facility] AST (SGOT) 26 10 - 42 unit/L LAB CHEMISTRY METHOD 01/08/2025 5:49 PM [facility] ALT (SGPT) 32 10 - 60 unit/L LAB CHEMISTRY METHOD 01/08/2025 5:49 PM [facility] Alkaline Phosphatase 48 42 - 121 unit/L LAB CHEMISTRY METHOD 01/08/2025 5:49 PM [facility] Total Protein 6.3 6.0 - 8.0 g/dL LAB CHEMISTRY METHOD 01/08/2025 5:49 PM [facility] Albumin 3.9 3.2 - 5.0 g/dL LAB CHEMISTRY METHOD 01/08/2025 5:49 PM [facility] Total Bilirubin 0.7 0.0 - 1.4 mg/dL LAB CHEMISTRY METHOD 01/08/2025 5:49 PM EDT [facility] Blood Venous blood specimen / Unknown Venipuncture / Unknown 01/08/2025 3:04 PM EDT 01/08/2025 3:04 PM EDT Starr Nunez MD LAB BLOOD ORDERABLES F inal Result [facility]) [facility] [address] [place] [address], [place] [phone] * Diabetes Foot Exam (03/22/2023) Diabetes: Annual Foot Exam Abstracted Historical Provider HEALTH MAINTENANCE Final Result * Colonoscopy (06/11/2020) Pathologist [facility] Colonoscopy No Interpretation , Abstracted Anatomical Region Laterality Modality Other Historical Provider HEALTH MAINTENANCE Final Result from Last 3 Months or Most Recently Relevant to Health Maintenance Insurance [employer] MEDICARE ADVANTAGE MEDICAID - [place] Care Teams Health Type Technician Relationship Specialty Start Date End Date Starr Nunez MD [address] [place] [id number] PCP - General Internal Medicine 06/23/21
== END 2025-03-04 15:10 | disposition home or self-care (01) ==
LOC: HO.HCS 14:24
PROVIDERS: PCP Internal Medicine; Visit Provider Nurse Practitioner Family
DX: I42.9 Cardiomyopathy, unspecified (principal); I42.2 Other hypertrophic cardiomyopathy; I25.10 Atherosclerotic heart disease of native coronary artery without angina pectoris; I10 Essential (primary) hypertension; E78.5 Hyperlipidemia, unspecified
CPT/HCPCS: 93010; 99214; G2211

== ENCOUNTER → 2025-03-04 14:23 | Outpatient (BNVA) | payer MEDICARE, SELFPAY | PROVIDERS: PCP Internal Medicine; Visit Provider Nurse Practitioner Family | DX: I25.10 Atherosclerotic heart disease of native coronary artery without angina pectoris (principal); I10 Essential (primary) hypertension; I42.9 Cardiomyopathy, unspecified; I42.2 Other hypertrophic cardiomyopathy; E78.5 Hyperlipidemia, unspecified | CPT/HCPCS: 93005; 99212 ==